=== PATIENT | female | born 1970 | race Caucasian/White ===

== ENCOUNTER 2017-06-20 15:05 | Emergency (ER) | payer OTHER ==
--- NOTE | 2017-06-20 15:33 | ED Physician Documentation ---
PD HPI LOWER EXT INJURY - Stated complaint Stated Complaint: R FOOT INJURY - Chief complaint Chief Complaint: Ext Problem - History obtained from History obtained from: Patient - History of Present Illness PD HPI LOW EXT INJURY LOCATION: Right, Foot Type of injury: Other (Came off a stool wrong- felt pop/cruch lateral R foot with persistent pain) Timing - onset: Other (1 week ago) Review of Systems Constitutional: reports: Reviewed and negative Throat: reports: Reviewed and negative Cardiac: reports: Reviewed and negative PD PAST MEDICAL HISTORY - Past Medical History Past Medical History: Yes Musculoskeletal: Osteoarthritis - Past Surgical History Past Surgical History: Yes Ortho: ACL reconstruction, Shoulder arthroplasty HEENT: Other - Present Medications Home Medications: Ambulatory Orders Medication Instructions Recorded Confirmed Ipratropium/Albuterol [Combivent 1 puffs PO 06/20/17 Respimat] Meloxicam [Mobic] 7.5 mg PO PRN PRN 06/20/17 06/20/17 - Allergies Allergies/Adverse Reactions: Allergies Allergy/AdvReac Type Severity Reaction Status Date / Time avocado Allergy Nausea Verified 06/20/17 15:15 cyclobenzaprine HCl * Allergy Unknown Verified 06/20/17 15:15 [From Flexeril] flu shot Allergy Anaphylaxis Uncoded 06/20/17 15:15 pain meds Allergy Unknown Uncoded 06/20/17 15:14 - Social History Does the pt smoke?: No Smoking Status: Never smoker PD ED PE NORMAL - Vitals Vital signs reviewed: Yes - General General: Alert and oriented X 3, No acute distress - Extremities Extremities: Other (Right foot looks grossly normal, great pedal pulses. She is focally tender over the fifth metatarsal without obvious deformity.) - Neuro Neuro: Alert and oriented X 3, Normal speech - Psych Psych: Normal mood, Normal affect Results - Vitals Vitals: Vital Signs - 24 hr 06/20/17 06/20/17 15:10 16:20 Temperature 37.3 C Heart Rate 93 84 Respiratory 18 16 Rate Blood Pressure 126/84 H 121/79 O2 Saturation 97 96 Oxygen O2 Source Room air - Rads (name of study) 3v R foot Radiology: EMP read contemporaneously (negative) Departure - Departure Disposition: 01 Home, Self Care Clinical Impression: Right foot sprain Qualifiers: Encounter type: initial encounter Qualified Code(s): S93.601A - Unspecified sprain of right foot, initial encounter Condition: Good Record reviewed to determine appropriate education?: Yes Instructions: ED Splint Care Aircast Splint Boot, ED Sprain Foot Comments: Recheck with your physician in 1 week if not improving. Your blood pressure was elevated today on check into the emergency department. This does not mean that you have hypertension, it is a common phenomenon to come to the emergency department and have elevated blood pressure. I recommend that she see her primary care physician within the week to have it rechecked when you are feeling better. Discharge Date/Time: 06/20/17 16:20
--- NOTE | 2017-06-20 16:01 | XRAY Preliminary Report ---
Exam: XR Foot 3 View RT IMPRESSION: Normal foot radiography. [facility] SITE ID: [id number]
[2017-06-20 16:22] VITALS: BP 121/79
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
== END 2017-06-20 16:20 | disposition home or self-care (01) ==
LOC: ED 15:05
DX: S93.601A Unspecified sprain of right foot, initial encounter (principal); X50.0XXA Overexertion from strenuous movement or load, initial encounter; M19.90 Unspecified osteoarthritis, unspecified site; R03.0 Elevated blood-pressure reading, without diagnosis of hypertension
CPT/HCPCS: 99282; 99283

== ENCOUNTER 2017-10-28 08:11 | Outpatient (CLI) | payer OTHER ==
--- NOTE | 2017-10-28 15:17 | Ultrasound Report ---
EXAM: LEFT BREAST ULTRASOUND: 10/28/2017 INDICATION: Pain, itching. TECHNIQUE: Ultrasound of the left upper outer quadrant was performed. FINDINGS: At the 2 o'clock position, 6 cm from the nipple, there is a simple 1.8 x 1.7 x 1.0 cm cyst. No sonographically suspicious findings are identified. IMPRESSION: BENIGN FINDINGS, WITH A SIMPLE CYST PRESENT. RECOMMENDATIONS: Routine annual screening unless otherwise clinically indicated. BIRADS CATEGORY 2-BENIGN FINDINGS. TD: 10/28/2017 13:59 MTDD
--- NOTE | 2017-10-28 15:20 | Mammography Report ---
EXAM: DIGITAL DIAGNOSTIC BILATERAL MAMMOGRAM: 10/28/2017 CLINICAL INDICATION: Bilateral pain, burning, itching. TECHNIQUE: Bilateral CC. MLO, laterally exaggerated CC, true lateral views. COMPARISON: Outside mammograms dated 09/17/2016, 07/05/2015, 05/25/2014, 2011. FINDINGS: The breasts demonstrate heterogeneously dense fibroglandular parenchyma bilaterally. There is an 1.5 cm developing density in the right 9 o' clock position posteriorly. A few punctate, typically benign calcifications are present. Please also refer to bilateral breast ultrasound of the same day. IMPRESSION: BENIGN FINDINGS, WITH BILATERAL CYSTS IDENTIFIED ON ULTRASOUND. RECOMMENDATIONS: Routine annual screening unless otherwise clinically indicated. BIRADS CATEGORY 2-BENIGN FINDINGS. STANDARD QUALIFYING STATEMENTS: 1. This examination was reviewed with the aid of Computer-Aided Detection (CAD). 2. A negative or benign imaging report should not delay biopsy if clinically suspicious findings are present. Consider surgical consultation if warranted. More than 5% of cancers are not identified by imaging. 3. Dense breasts may obscure an underlying neoplasm. TD: 10/28/2017 14:06 POLA
--- NOTE | 2017-10-28 15:33 | Ultrasound Report ---
EXAMINATION: RIGHT BREAST ULTRASOUND 10/28/2017 CLINICAL INDICATION: Abnormal mammogram, pain, itching. TECHNIQUE: Real-time scanning was performed with vaccine customer representative static images obtained. FINDINGS: Ultrasound of the right upper outer and lower outer quadrants was performed. At the 9 o'clock position, 10 cm from the nipple, there is a 1.7 x 1.1 x 0.8 cm simple cyst, accounting for the mammographic abnormality. No sonographically suspicious findings are identified. IMPRESSION: BENIGN FINDINGS. RECOMMENDATION: Routine annual screening unless otherwise clinically indicated. BIRADS Category 2 - benign findings. TD: 10/28/2017 14:23 POLA
== END 2017-10-28 08:12 | disposition home or self-care (01) ==
LOC: DI 08:11
PROVIDERS: ATTEND Physician Assistant
DX: N64.4 Mastodynia (principal); R21 Rash and other nonspecific skin eruption; L29.9 Pruritus, unspecified; R20.8 Other disturbances of skin sensation
CPT/HCPCS: 76642; 77066

== ENCOUNTER 2018-01-08 07:11 | Outpatient (CLI) | payer OTHER ==
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
== END 2018-01-08 07:12 | disposition home or self-care (01) ==
LOC: DI 07:11
PROVIDERS: ATTEND Family Medicine
DX: M50.222 Other cervical disc displacement at C5-C6 level (principal); M50.322 Other cervical disc degeneration at C5-C6 level
CPT/HCPCS: 72141

== ENCOUNTER 2019-01-28 10:44 | Emergency (ER) | payer OTHER, BC ==
[2019-01-28] MEDS ORDERED: diazePAM 5 MG TABLET PO STA (12:30)
[2019-01-28] MEDS ORDERED: HYDROcod/ACETAM 5/325 MG TABLET PO STA (12:30)
[2019-01-28] MEDS ORDERED: traMADol 50 MG TABLET PO STA (12:58)
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
[2019-01-28 14:29] VITALS: BP 121/82
== END 2019-01-28 14:34 | disposition home or self-care (01) ==
LOC: ED 10:44
DX: S16.1XXA Strain of muscle, fascia and tendon at neck level, initial encounter (principal); M25.511 Pain in right shoulder; M54.6 Pain in thoracic spine; V89.2XXA Person injured in unspecified motor-vehicle accident, traffic, initial encounter
CPT/HCPCS: 72072; 72125; 73030; 99283; A9270

== ENCOUNTER 2019-02-10 17:15 | Outpatient (CLI) | payer OTHER, BC ==
--- NOTE | 2019-02-11 13:18 | XRAY Report ---
Reason: RADICULOPATHY,LUMBOSACRAL REGION Procedure Date: 02/10/2019 Accession Number: [id number] / [id number] Procedure: XR - Lumbar Spine 2 View CPT Code: FULL RESULT: EXAM: LUMBOSACRAL SPINE RADIOGRAPHY EXAM DATE: 02/10/2019 05:26 PM. CLINICAL HISTORY: Radiculopathy, lumbosacral region. COMPARISONS: None. TECHNIQUE: 2 views. FINDINGS: Alignment: Normal. No spondylolisthesis or scoliosis. Bones: Five uqd-jzu-dlhqnbl lumbar vertebral bodies are present. No fractures or bone lesions. Disks: Normal. Disk heights are maintained. Facets: No degenerative changes. Sacroiliac Joints: Unremarkable. Soft Tissues: Normal. The visualized bowel gas pattern is normal. IMPRESSION: Normal lumbar spine radiography. [facility]
== END 2019-02-10 17:16 | disposition home or self-care (01) ==
LOC: DI 17:15
PROVIDERS: ATTEND Family Medicine
DX: M54.17 Radiculopathy, lumbosacral region (principal)
CPT/HCPCS: 72100

== ENCOUNTER 2019-03-04 10:57 | Outpatient (CLI) | payer OTHER, BC ==
--- NOTE | 2019-03-05 07:55 | CT Report ---
Reason: RADICULOPATHY, LUMBOSACRAL REGION Procedure Date: 03/04/2019 Accession Number: [id number] / [id number] Procedure: CT - LUMBAR SPINE WO CPT Code: FULL RESULT: EXAM: CT LUMBAR SPINE WITHOUT CONTRAST EXAM DATE: 03/04/2019 11:26 AM. CLINICAL HISTORY: RADICULOPATHY, LUMBOSACRAL REGION. COMPARISONS: Lumbar radiographs 02/10/2019. TECHNIQUE: Thin-section axial images were acquired of the lumbar spine from T12 to S1 without contrast. Post-processing: Coronal and sagittal reformats. Other: None. In accordance with CT protocol optimization, one or more of the following dose reduction techniques were utilized for this exam: automated exposure control, adjustment of mA and/or KV based on patient size, or use of iterative reconstructive technique. FINDINGS: Alignment: Normal alignment. No spondylolisthesis. Bones: Five plv-lki-hjvyzuq lumbar vertebral bodies are present. No acute fracture. No destructive bone lesion. At the T11 and T12 levels there are midline defects in the posterior elements which may reflect spina bifida occulta versus previous partial laminectomies. Disk Levels/Facets: T12-L1: Unremarkable. L1-L2: Unremarkable. L2-L3: Unremarkable. L3-L4: Mild facet arthropathy. No stenosis. L4-L5: Mild facet arthropathy. No stenosis. L5-S1: Mild disk height loss. No stenosis. Musculature: Normal. No fatty atrophy. Other: 1. Midline posterior element defects at the T11 and T12 levels which may reflect developmental spina bifida occulta versus previous partial laminectomies. 2. No acute fracture. No significant stenosis identified by CT. IMPRESSION: Normal lumbar spine CT. [facility]
== END 2019-03-04 10:58 | disposition home or self-care (01) ==
LOC: DI 10:57
PROVIDERS: ATTEND Family Medicine
DX: M47.9 Spondylosis, unspecified (principal); M48.8X6 Other specified spondylopathies, lumbar region
CPT/HCPCS: 72131

== ENCOUNTER 2019-05-22 08:30 | Outpatient (CLI) | payer OTHER, MEDICAID ==
--- NOTE | 2019-05-22 18:08 | MRI Report ---
Reason: RADICULOPATHY, LUMBOSACRAL REGION Procedure Date: 05/22/2019 Accession Number: [id number] / [id number] Procedure: MRI - Lumbar Spine W/O CPT Code: FULL RESULT: EXAM: MRI LUMBAR SPINE WITHOUT CONTRAST EXAM DATE: 05/22/2019 09:30 AM. CLINICAL HISTORY: RADICULOPATHY, LUMBOSACRAL REGION. COMPARISON: LUMBAR SPINE W/O 03/04/2019 11:17 AM. TECHNIQUE: Multiplanar, multisequence T1-weighted and fluid-sensitive sequences of the lumbar spine from T12 to S1 without contrast. Other: None. FINDINGS: Spinal Canal: The conus terminates at L1. The conus medullaris and cauda equina are unremarkable. Alignment: No scoliosis or spondylolisthesis. Bone Marrow: Five dki-bni-nftktex lumbar vertebral bodies are assumed. Posterior decompression procedure with laminectomy at T11 and T12, similar to previous. No fractures. Disk Levels/Facets: T12-L1: Dorsal decompression procedure. No mass. L1-L2: Normal disk. No stenosis. L2-L3: Unremarkable. L3-L4: Unremarkable. L4-L5: Normal disk, prominent facets, no stenosis. L5-S1: Annular tear. Normal disk. No central or foraminal stenosis. Musculature: Moderate fatty atrophy of the multifidus muscle is seen. Other: The partially visualized retroperitoneum is unremarkable. IMPRESSION: 1. Conus terminates at L1 which is normal. No scoliosis or listhesis. Previous posterior decompression procedure with laminectomy at T11 and T12. This is similar to the previous CT study. 2. No stenosis seen throughout. Comment: The following findings are so common in adults without low back pain that while we report their presence, they must be interpreted with caution and in the context of the clinical situation. (Reference Annak et al, Spine 2001) Prevalence of findings in patients without low back pain: Disk degeneration (any evidence): 92% Disk desiccation/T2 signal loss: 83% Disk height loss: 56% Disk bulge: 64% Disk protrusion: 32% Annular tear/high intensity zone: 38% [facility]
== END 2019-05-22 08:31 | disposition home or self-care (01) ==
LOC: DI 08:30
PROVIDERS: ATTEND Family Medicine
DX: M54.17 Radiculopathy, lumbosacral region (principal)
CPT/HCPCS: 72148

== ENCOUNTER 2019-08-04 14:43 | Outpatient (CLI) | payer BC, MEDICAID ==
[2019-08-04 15:06] LABS: BASOPHILS # (AUTO) 0.1 10^3/uL (0.0-0.1); BASOPHILS % (AUTO) 0.8 %; EOSINOPHILS # (AUTO) 0.2 10^3/uL (0.0-0.7); EOSINOPHILS % (AUTO) 2.2 %; HGB - HEMOGLOBIN 12.9 g/dL (12.0-16.0); LYMPHOCYTES # (AUTO) 1.7 10^3/uL (1.5-3.5); LYMPHOCYTES % (AUTO) 21.7 %; MEAN CORPUSCULAR HEMOGLOBIN 30.9 pg (27.0-31.0); MEAN CORPUSCULAR HGB CONC 32.7 g/dL (32.0-36.0); MEAN CORPUSCULAR VOLUME 94.3 fL (81.0-99.0); MEAN PLATELET VOLUME 9.6 fL (7.9-10.8); MONOCYTES # (AUTO) 0.8 10^3/uL (0.0-1.0); MONOCYTES % (AUTO) 10.1 %; NEUTROPHILS % (AUTO) 64.8 %; PLT - PLATELET COUNT 242 10^3/uL (130-450); RED BLOOD COUNT 4.18 10^6/uL (4.20-5.40); RED CELL DISTRIBUTION WIDTH 12.9 % (12.0-15.0); WHITE BLOOD COUNT 7.7 x10^3/uL (4.8-10.8)
[2019-08-04 15:26] LABS: ALBUMIN 4.3 g/dL (3.2-5.5); ALBUMIN/GLOBULIN RATIO 1.5 (1.0-2.2); BILIRUBIN,TOTAL 0.6 mg/dL (0.2-1.0); CALCIUM 9.9 mg/dL (8.5-10.3); CREATININE 1.1 mg/dL (0.4-1.0); TOTAL PROTEIN 7.1 g/dL (6.7-8.2)
[2019-08-04] MEDS ORDERED: IOVERSOL 320 50 ML VIAL ONE (16:10)
[2019-08-04] MEDS ORDERED: IOVERSOL 320 100 ML VIAL IVP ONE ×2 (16:10→16:56)
[2019-08-04] MEDS ORDERED: IOVERSOL 320 50 ML VIAL PO ONE (16:56)
--- NOTE | 2019-08-04 17:36 | CT Report ---
Reason: ABDOMINAL PAIN Procedure Date: 08/04/2019 Accession Number: [id number] / [id number] Procedure: CT - Abdomen/Pelvis W CPT Code: FULL RESULT: EXAM: CT ABDOMEN AND PELVIS EXAM DATE: 08/04/2019 04:57 PM. CLINICAL HISTORY: Cc Optiray 320 COMPARISONS: None. TECHNIQUE: Routine helical CT imaging was performed through the abdomen and pelvis. IV contrast: OPTI 320 100ML. Enteric contrast: Yes. Reconstructions: Coronal and sagittal. In accordance with CT protocol optimization, one or more of the following dose reduction techniques were utilized for this exam: automated exposure control, adjustment of mA and/or KV based on patient size, or use of iterative reconstructive technique. FINDINGS: Imaged chest: Unremarkable. Liver: There is a cyst within the left lobe of the liver. Gallbladder: Unremarkable. Biliary: Unremarkable. Pancreas: Unremarkable. Spleen: Unremarkable. Adrenal glands: Unremarkable. Kidneys: There are 2 cysts within the upper pole the right kidney. No hydronephrosis or nephrolithiasis. Urinary bladder: Unremarkable. Reproductive organs: The uterus is grossly unremarkable. Within the left adnexa, there is a hypoenhancing 8 x 5.4 x 5.2 cm mass with high density fluid in the cul-de-sac which may represent acute blood products. Bowel: Unremarkable. Stomach: Unremarkable. Appendix: The appendix is not reliably identified, however, there are no secondary signs of acute appendicitis. Miscellaneous: No extraluminal gas. Aorta: No significant aortic atherosclerosis. Normal in caliber. Lymph nodes: No pathologically enlarged lymph nodes identified. Bones: No acute fracture. No suspicious osseous lesions. Sidewalls: Unremarkable. IMPRESSION: 1. Within the left adnexa, there is a hypoenhancing 8 x 5.4 x 5.2 cm mass with high density fluid in the cul-de-sac which may represent acute blood products. Differential includes ovarian mass versus ovarian torsion. Recommend pelvic ultrasound for further evaluation. [facility] The call report notification system was initiated by Dr. Jose De Jesus Cardona at 05:25 PM on 08/04/2019. ADDENDUM: 08/04/19 17:37 The above call report findings were discussed with Geovanna Charels by Dr. Jose De Jesus Cardona at 05:37 PM on 08/04/2019.
[2019-08-04] MEDS ORDERED: BUPIVACAINE 0.5%-EPI 1:200000 PF 10 ML VIAL ONE (21:28)
[2019-08-05] MEDS ORDERED: PROMETHAZINE 25 MG/1 ML VIAL ONE (00:03)
[2019-08-05] MEDS ORDERED: fentaNYL 100 MCG/2 ML VIAL ONE (00:34)
== END 2019-08-04 14:44 | disposition home or self-care (01) ==
LOC: LAB 14:43 → DI 14:44
PROVIDERS: ATTEND Nurse Practitioner
DX: R10.9 Unspecified abdominal pain (principal); R19.04 Left lower quadrant abdominal swelling, mass and lump
CPT/HCPCS: 36415; 74177; 80053; 85025

== ENCOUNTER 2019-08-04 17:57 | Day surgery (SDC) | payer BC, MEDICAID ==
[~2019-08-04 17:57] MED LIST: HYDROmorphone 0.5 MG/0.5 ML SYRINGE IVP PRN; LACTATED RINGERS 1,000 ML IV ONE; LORazepam 2 MG/ML VIAL IVP PRN; ONDANSETRON 4 MG/2 ML VIAL IVP PRN; oxyCODONE 5 MG TABLET PO PRN
[2019-08-04 18:20] LABS: BILIRUBIN,URINE NEGATIVE (NEGATIVE); GLUCOSE, URINE (UA) NEGATIVE (NEGATIVE); KETONES,URINE (UA) NEGATIVE (NEGATIVE); LEUKOCYTE ESTERASE, URINE NEGATIVE (NEGATIVE); NITRITE,URINE NEGATIVE (NEGATIVE); OCCULT BLOOD,URINE LARGE (NEGATIVE); PH,URINE 5.5 PH (5.0-7.5); PROTEIN,URINE NEGATIVE (NEGATIVE); UROBILINOGEN,URINE 0.2 (NORMAL) E.U./dL (NORMAL)
[2019-08-04 18:23] LABS: CLARITY,URINE HAZY (CLEAR); HCG UR QUAL POSITIVE
[2019-08-04 18:28] LABS: BACTERIA,URINE Few /HPF (None Seen); SQUAMOUS EPITHELIAL CELL,UR MOD Squamous (<= Few)
[2019-08-04 18:41] LABS: BASOPHILS # (AUTO) 0.1 10^3/uL (0.0-0.1); BASOPHILS % (AUTO) 0.9 %; EOSINOPHILS # (AUTO) 0.2 10^3/uL (0.0-0.7); EOSINOPHILS % (AUTO) 2.6 %; HGB - HEMOGLOBIN 13.3 g/dL (12.0-16.0); LYMPHOCYTES # (AUTO) 2.4 10^3/uL (1.5-3.5); LYMPHOCYTES % (AUTO) 31.3 %; MEAN CORPUSCULAR HEMOGLOBIN 31.2 pg (27.0-31.0); MEAN CORPUSCULAR HGB CONC 33.3 g/dL (32.0-36.0); MEAN CORPUSCULAR VOLUME 93.7 fL (81.0-99.0); MEAN PLATELET VOLUME 9.8 fL (7.9-10.8); MONOCYTES # (AUTO) 0.6 10^3/uL (0.0-1.0); MONOCYTES % (AUTO) 8.1 %; NEUTROPHILS # (AUTO) 4.4 10^3/uL (1.5-6.6); PLT - PLATELET COUNT 246 10^3/uL (130-450); RED BLOOD COUNT 4.26 10^6/uL (4.20-5.40); RED CELL DISTRIBUTION WIDTH 12.9 % (12.0-15.0); WHITE BLOOD COUNT 7.8 x10^3/uL (4.8-10.8)
[2019-08-04 18:56] LABS: ALBUMIN 4.5 g/dL (3.2-5.5); ALBUMIN/GLOBULIN RATIO 1.6 (1.0-2.2); BILIRUBIN,TOTAL 0.5 mg/dL (0.2-1.0); CALCIUM 9.9 mg/dL (8.5-10.3); CREATININE 0.9 mg/dL (0.4-1.0); TOTAL PROTEIN 7.3 g/dL (6.7-8.2)
[2019-08-04] MEDS ORDERED: ONDANSETRON 4 MG/2 ML VIAL IVP STA (19:04)
[2019-08-04] MEDS ORDERED: HYDROmorphone 1 MG/ML CARPUJECT IVP STA (19:04)
--- NOTE | 2019-08-04 19:30 | ED Physician Documentation ---
PD HPI ABD PAIN - Stated complaint Stated Complaint: ABN CT SCAN - Chief complaint Chief Complaint: Abd Pain - History obtained from History obtained from: Patient - History of Present Illness Timing - onset: Other (49-year-old woman status post remote ablation and tubal ligation developed some left-sided abdominal swelling 2 days ago and then suddenly at 1 PM yesterday left-sided abdominal pain. She went to see her doctor today and a CT was done showing an 8 cm adnexal mass with free fluid and was sent here for further evaluation and treatment.) Review of Systems Ten Systems: 10 systems reviewed and negative Constitutional: reports: Reviewed and negative Nose: reports: Reviewed and negative Throat: reports: Reviewed and negative Cardiac: reports: Reviewed and negative Respiratory: reports: Reviewed and negative PD PAST MEDICAL HISTORY - Past Medical History Past Medical History: No Musculoskeletal: Osteoarthritis - Past Surgical History Past Surgical History: Yes Ortho: ACL reconstruction, Shoulder arthroplasty HEENT: Other - Present Medications Home Medications: Ambulatory Orders Medication Instructions Recorded Confirmed Ipratropium/Albuterol [Combivent 1 puffs PO Q6HR 06/20/17 01/28/19 Respimat] Meloxicam [Mobic] 7.5 mg PO PRN PRN 06/20/17 01/28/19 diazePAM [Valium] 5 mg PO TID PRN #15 tablet 01/28/19 - Allergies Allergies/Adverse Reactions: Allergies Allergy/AdvReac Type Severity Reaction Status Date / Time avocado Allergy Anaphylaxis Verified 08/04/19 18:04 cyclobenzaprine HCl * Allergy Anaphylaxis Verified 08/04/19 18:04 [From Flexeril] Influenza Virus Vaccines Allergy Anaphylaxis Verified 08/04/19 18:04 meperidine [From Demerol] Allergy Hives Verified 08/04/19 18:04 Opioids - Morphine Analogues AdvReac Nausea Verified 08/04/19 18:04 - Social History Does the pt smoke?: No Smoking Status: Never smoker Does the pt drink ETOH?: No Does the pt have substance abuse?: No - Family History Family history: reports: Non contributory PD ED PE NORMAL - Vitals Vital signs reviewed: Yes - General General: Alert and oriented X 3, No acute distress - HEENT HEENT: PERRL, EOMI - Neck Neck: Supple, no meningeal sign, No bony TTP - Cardiac Cardiac: RRR, No murmur - Respiratory Respiratory: No respiratory distress, Clear bilaterally - Abdomen Abdomen: Other (Mild left-sided abdominal tenderness) - Back Back: No CVA TTP, No spinal TTP - Derm Derm: Normal color, Warm and dry - Extremities Extremities: No edema, No calf tenderness / cord - Neuro Neuro: Alert and oriented X 3, Normal speech Results - Vitals Vitals: Vital Signs - 24 hr 08/04/19 17:59 Temperature 36.5 C Heart Rate 90 Respiratory 18 Rate Blood Pressure 131/88 H O2 Saturation 100 Oxygen O2 Source Room air - Labs Labs: Laboratory Tests 08/04/19 08/04/19 08/04/19 18:07 18:28 18:28 WBC 7.8 RBC 4.26 Hgb 13.3 Hct 39.9 MCV 93.7 MCH 31.2 H MCHC 33.3 RDW 12.9 Plt Count 246 MPV 9.8 Neut # (Auto) 4.4 Lymph # (Auto) 2.4 Cuming # (Auto) 0.6 Eos # (Auto) 0.2 Baso # (Auto) 0.1 Absolute Nucleated RBC 0.00 Nucleated RBC % 0.0 Sodium 136 Potassium 3.9 Chloride 103 Carbon Dioxide 25 Anion Gap 8.0 BUN 19 Creatinine 0.9 Estimated GFR (MDRD) 67 L Glucose 100 Calcium 9.9 Total Bilirubin 0.5 AST 21 ALT 29 Alkaline Phosphatase 34 L Total Protein 7.3 Albumin 4.5 Globulin 2.8 Albumin/Globulin Ratio 1.6 Lipase 32 HCG, Quant Urine Color YELLOW Urine Clarity HAZY Urine pH 5.5 Ur Specific [place] <=1.005 Urine Protein NEGATIVE Urine Glucose (UA) NEGATIVE Urine Ketones NEGATIVE Urine Occult Blood LARGE H Urine Nitrite NEGATIVE Urine Bilirubin NEGATIVE Urine Urobilinogen 0.2 (NORMAL) Ur Leukocyte Esterase NEGATIVE Urine RBC 6-10 H Urine WBC 0-3 Ur Squamous Epith Cells MOD Squamous H Urine Bacteria Few Ur Microscopic Review INDICATED Urine Culture Comments NOT INDICATED Urine HCG, Qual POSITIVE 08/04/19 19:38 WBC RBC Hgb Hct MCV MCH MCHC RDW Plt Count MPV Neut # (Auto) Lymph # (Auto) [place] # (Auto) Eos # (Auto) Baso # (Auto) Absolute Nucleated RBC Nucleated RBC % Sodium Potassium Chloride Carbon Dioxide Anion Gap BUN Creatinine Estimated GFR (MDRD) Glucose Calcium Total Bilirubin AST ALT Alkaline Phosphatase Total Protein Albumin Globulin Albumin/Globulin Ratio Lipase HCG, Quant 771.38 Urine Color Urine Clarity Urine pH Ur Specific [place] Urine Protein Urine Glucose (UA) Urine Ketones Urine Occult Blood Urine Nitrite Urine Bilirubin Urine Urobilinogen Ur Leukocyte Esterase Urine RBC Urine WBC Ur Squamous Epith Cells Urine Bacteria Ur Microscopic Review Urine Culture Comments Urine HCG, Qual - Rads (name of study) Pelvic sono Radiology: EMP read contemporaneously (1. Arterial and venous blood flow identified in both ovaries without findings of acute torsion. 2. Left ovary is enlarged and contains a 4.2 cm complex cyst or cystic mass. Recommend follow-up ultrasound to reevaluate. 3. Free fluid in the posterior cul-de-sac of the pelvis and adnexa.) PD MEDICAL DECISION MAKING - ED course ED course: On arrival here test was done and positive, this is concerning for an ectopic and after my evaluation the on-call OB was paged. Spoke with Dr. Salcido, he had a patient that was pushing so deferred to Dr. Correa who expeditiously came in to evaluate the patient and take her to the OR for a ruptured ectopic . Departure - Departure Disposition: ED Transfer to [facility] Clinical Impression: Ruptured left tubal ectopic causing hemoperitoneum Condition: Serious
--- NOTE | 2019-08-04 19:45 | Ultrasound Report ---
Reason: pelvic mass vs torsion on CT Procedure Date: 08/04/2019 Accession Number: [id number] / [id number] Procedure: US - Pelvic w/Transvag+Doppler Ltd CPT Code: FULL RESULT: EXAM: PELVIC ULTRASOUND WITH DOPPLERS CLINICAL HISTORY: Pelvic mass vs torsion on CT. COMPARISON: ABDOMEN/PELVIS W/ 08/04/2019 4:52 PM TECHNIQUE: Realtime transabdominal imaging performed to identify the uterus and adnexa and as an overview of other pelvic structures, with static image documentation. Color flow imaging and Doppler spectral analysis was performed to evaluate blood flow to the ovaries given pelvic pain and clinical concern for ovarian torsion. FINDINGS: Uterus: 8 x 3.3 x 4.5 cm, volume 62 cc. Anteverted position. Normal overall size and echotexture. Masses: None. Endometrium: 9 mm. Normal. Cervix: Unremarkable. Right Ovary: 3.2 x 2.7 x 2.1 cm, volume 10 cc. Normal in size. Arterial and venous blood flow are present. PSV 7.7 cm/sec. RI 0.7. Adnexa peristalsing loops of bowel seen. Small free fluid in adnexa.. Left Ovary: 5.5 x 3.9 x 5 cm, volume 55 cc. Left ovary is enlarged. There is a hypoechoic complex cyst or mass measuring 4.2 x 3.3 x 4.1 cm. Arterial and venous blood flow are present. PSV 10.2 cm/sec. RI 0.6. Adnexa free fluid visualized.. Free Fluid: Free fluid visualized in the posterior cul-de-sac, limited by peristalsing bowel. Other: None. IMPRESSION: 1. Arterial and venous blood flow identified in both ovaries without findings of acute torsion. 2. Left ovary is enlarged and contains a 4.2 cm complex cyst or cystic mass. Recommend follow-up ultrasound to reevaluate. 3. Free fluid in the posterior cul-de-sac of the pelvis and adnexa. RADIA
[2019-08-04] MEDS ORDERED: diphenhydrAMINE INJ 50 MG/ML VIAL IVP ONE (20:37)
[2019-08-04] MEDS ORDERED: NEOSTIGMINE 1 MG/1 ML 10 ML MDV IVP ONE (20:37)
[2019-08-04] MEDS ORDERED: MIDAZOLAM 2 MG/2 ML VIAL IVP ONE (20:37)
[2019-08-04] MEDS ORDERED: ACETAMINOPHEN 1,000 MG/100 ML 100 ML IV ONE (20:37)
[2019-08-04] MEDS ORDERED: LIDOCAINE-MPF 2% 5 ML VIAL IM ONE (20:37)
[2019-08-04] MEDS ORDERED: PROPOFOL 200 MG/20 ML VIAL IVP ONE (20:37)
[2019-08-04] MEDS ORDERED: fentaNYL 100 MCG/2 ML VIAL IVP ONE (20:37)
[2019-08-04] MEDS ORDERED: KETOROLAC 30 MG/ML VIAL IVP ONE (20:37)
[2019-08-04] MEDS ORDERED: DEXAMETHASONE 4 MG/ML VIAL IVP ONE (20:37)
[2019-08-04] MEDS ORDERED: GLYCOPYRROLATE 1 MG/5 ML VIAL IVP ONE (20:37)
[2019-08-04] MEDS ORDERED: ROCURONIUM 50 MG/5 ML VIAL IVP ONE (20:37)
[2019-08-04] MEDS ORDERED: METOCLOPRAMIDE 10 MG/2 ML VIAL IVP ONE (20:37)
--- NOTE | 2019-08-04 21:10 | ANESTHESIA ---
Pre-Anesthesia VS, & Labs - Diagnosis ectopic - Procedure laparoscopy, treatment of ectopic Vital Signs: Temp Pulse Resp BP Pulse Ox 36.5 C 90 16 128/85 H 94 08/04/19 17:59 08/04/19 20:04 08/04/19 20:04 08/04/19 20:04 08/04/19 20:04 Height 5 ft 1 in Weight (kg) 80.739 kg Body Mass Index 33.6 - NPO Other (1130 lunch, CT prep 16;45) - Is Patient ?: Yes - Lab Results Current Lab Results: Laboratory Tests 08/04/19 19:38: Blood Type A POSITIVE, Antibody Screen NEGATIVE, Crossmatch IS Only See Detail 08/04/19 19:38: HCG, Quant 771.38 08/04/19 18:28: Blood Type Recheck A POSITIVE 08/04/19 18:28: Sodium 136, Potassium 3.9, Chloride 103, Carbon Dioxide 25, Anion Gap 8.0, BUN 19, Creatinine 0.9, Estimated GFR (MDRD) 67 L, Glucose 100, Calcium 9.9, Total Bilirubin 0.5, AST 21, ALT 29, Alkaline Phosphatase 34 L, Total Protein 7.3, Albumin 4.5, Globulin 2.8, Albumin/Globulin Ratio 1.6, Lipase 32 08/04/19 18:28: WBC 7.8, RBC 4.26, Hgb 13.3, Hct 39.9, MCV 93.7, MCH 31.2 H, MCHC 33.3, RDW 12.9, Plt Count 246, MPV 9.8, Neut # (Auto) 4.4, Lymph # (Auto) 2.4, [place] # (Auto) 0.6, Eos # (Auto) 0.2, Baso # (Auto) 0.1, Absolute Nucleated RBC 0.00, Nucleated RBC % 0.0 Fish Bones: 08/04/19 18:28 08/04/19 18:28 Home Medications and Allergies Ipratropium/Albuterol [Combivent Respimat] 1 puffs PO Q6HR 06/20/17 Meloxicam [Mobic] 7.5 mg PO PRN PRN 06/20/17 Allergies/Adverse Reactions: Allergies Allergy/AdvReac Type Severity Reaction Status Date / Time avocado Allergy Anaphylaxis Verified 08/04/19 18:04 cyclobenzaprine HCl * Allergy Anaphylaxis Verified 08/04/19 18:04 [From Flexeril] Influenza Virus Vaccines Allergy Anaphylaxis Verified 08/04/19 18:04 meperidine [From Demerol] Allergy Hives Verified 08/04/19 18:04 Opioids - Morphine Analogues AdvReac Nausea Verified 08/04/19 18:04 Anes History & Medical History - Anesthetic History Anesthesia Complications: reports: Post-Operative Nausea/Vomiting - Medical History Cardiovascular: reports: None, Murmur Pulmonary: reports: Asthma Gastrointestinal: reports: GERD Musculoskeletal: reports: Osteoarthritis Smoking Status: Never smoker - Surgical History Eyes Ears Nose Throat (EENT): Other Urologic: Ureterolithotomy (stones) Orthopedic: ACL reconstruction, Shoulder arthroplasty Exam General: Alert Dental: WNL Mouth Opening: Greater than 4 Fingerbreadths Mallampati classification: I Thyromental Distance: greater than 6 cm Respiratory: Lungs clear Cardiovascular: Regular rate Plan Anesthesia Type: General Consent for Procedure(s) Verified and Reviewed: Yes Code Status: Attempt Resuscitation ASA classification: 2-Mild systemic disease Is this case an emergency?: Yes
[2019-08-04] MEDS ORDERED: ceFAZolin 2 GM in SODIUM CHLORIDE 0.9% 100ML 100 ML IV STA (21:24)
[2019-08-04] MEDS ORDERED: ceFAZolin 1 GM VIAL ONE (21:35)
[2019-08-04] MEDS ORDERED: ONDANSETRON 4 MG/2 ML VIAL IVP PRN (23:36)
[2019-08-04] MEDS ORDERED: oxyCODONE 5 MG TABLET PO PRN (23:36)
[2019-08-04] MEDS ORDERED: LORazepam 2 MG/ML VIAL IVP PRN (23:36)
[2019-08-04] MEDS ORDERED: HYDROmorphone 0.5 MG/0.5 ML SYRINGE IVP PRN (23:36)
[2019-08-04] MEDS ORDERED: LACTATED RINGERS 1,000 ML IV ONE (23:38)
--- NOTE | 2019-08-04 23:44 | OPERATIVE REPORT ---
Operative Report - General Procedure Date: 08/04/19 Planned Procedure: Laproscopic excision of left ectopic with BS. Pre-Op Diagnosis: ruptured left ectopic Procedure Performed: Same Post Op Diagnosis: left cornual ectopic - Procedure Note Primary Surgeon: Anthony Correa MD Anesthesia Provider: Vee Viveros CRNA Anesthesia Technique: General ET tube Pathology: bilateral tubes, left cornual IV Fluids (mL): 1,000 Estimated Blood Loss (mL): 75 Urine Output (mL): 100 Indications: left tubal Findings: left cornual 500 ml blood in the abdomen - Other Other Information/Narrative: #[id number]
[2019-08-04] MEDS ORDERED: ACETAMINOPHEN 500 MG TABLET PO SCH (23:45)
--- NOTE | 2019-08-04 23:46 | PREOP HISTORY & PHYSICAL ---
DATE OF SERVICE: 08/04/2019 Physician: Anthony Correa MD IDENTIFICATION: The patient is a 49-year-old G4, P2, AB1 female, with last menstrual period was roug hly 9 days ago. HISTORY OF PRESENT ILLNESS: The patient was told to present because of an abnormal CAT scan. She no arleth an onset of left lower quadrant pain yesterday at roughly 1300 hours. She states it was knife-li ke. It spread to the lower abdomen over time. She states her pain is getting progressively worse. She has a history of having had her tubes tied in the past. She denies any history of any STIs. She has not been using any contraception and is currently sexually active. PAST MEDICAL HISTORY 1. Positive for asthma. 2. Back pain. PAST SURGICAL HISTORY 1. The patient had multiple sutures of the head at 14 years of age. 2. She has had PRK. 3. Left knee surgery. 4. Left ACL repair. 5. Left shoulder surgery. 6. She has also had discectomies and cervical surgery over C4, C5 and C6 in March 2018. 7. She had a tubal ligation done in 1994. 8. She has also had an endometrial ablation. CURRENT MEDICATIONS 1. Combivent p.r.n. 2. She also takes Colace. 3. Metamucil. 4. She takes Flonase for allergies. 5. She also is taking Vitamin D. 6. Multivitamin. 7. As well as CBD for back pain. ALLERGIES 1. FLEXERIL. 2. FLU SHOT. 3. AVOCADO. HABITS: The patient has three drinks per week. Denies use of tobacco, street or addictive drugs. SOCIAL HISTORY: The patient is in stable relationship for the last three years. She works as a [employer]. FAMILY HISTORY: Positive for father and grandfather with heart disease. Paternal grandmother with d iabetes. Maternal grandmother with diabetes, as well as a maternal grandfather with lung cancer, who smoked. Father with lung cancer, who also smoked, and a mother with thyroid disease. PHYSICAL EXAMINATION GENERAL: Well-developed, well-nourished, white female in mild distress. VITAL SIGNS: Temperature is 36.5, pulse is 90, blood pressure 131/88, respirations 18, 100% sat on r oom air. HEENT: Pupils are equal, round. Extraocular muscles are intact. Mouth is clear. NECK: Thyroid is not palpably enlarged. HEART: Regular rate and rhythm without murmurs. LUNGS: Lung galvan are clear without rales or wheezes. ABDOMEN: Tender throughout, particularly most tender in the left lower quadrant. IMAGING: CT shows evidence of a 5 x 5 x 7 cm left adnexal mass. LABORATORY DATA: She has a quantitative hCG of 771. Her CBC shows a hemoglobin of 13.3, hematocrit 33.3. Electrolytes are within normal limits. Platelets are also normal. IMPRESSION: A 45-year-old 4, para 2, AB 1 female with a left ectopic . PLAN: We will perform laparoscopic removal of the left ectopic and also remove the right t ube at the same time. Risks and benefits have been explained to the patient including those, but not limited to bleeding, infection, injury to pelvic organs, which include the uterus, tubes, ovaries, b owel, bladder and ureters. She is aware of the potential for DVT with PE, as well as postoperative a dhesions, which could cause pain, bowel obstruction. TD: 08/04/2019 20:56
[2019-08-05] MEDS ORDERED: BUPIVACAINE 0.25%-EPI 1:200000 PF 30 ML VIAL SUBQ ONE (00:04)
[2019-08-05] MEDS ORDERED: fentaNYL 100 MCG/2 ML VIAL IVP ONE (00:34)
[2019-08-05] MEDS: ACETAMINOPHEN 500 MG TABLET PO SCH ×2 (01:00→06:17)
--- NOTE | 2019-08-05 02:16 | OPERATIVE REPORT ---
DATE OF SERVICE: 08/04/2019 Physician: Anthony Correa MD PREOPERATIVE DIAGNOSIS: Left ectopic with a 5 x 7 left adnexal mass. POSTOPERATIVE DIAGNOSIS: Left cornual with hemoperitoneum. PROCEDURE PERFORMED: Laparoscopic excision of bilateral fallopian tubes as well as left cornual preg elder and oversewing of the left cornu. SURGEON: Anthony Correa MD ANESTHESIA: Vee Bonilla CRNA. ESTIMATED BLOOD LOSS: 75 mL, 1000 mL of IV fluids. URINE OUTPUT: 100 mL of urine, 500 mL of hemoperitoneum. FINDINGS: Upon entering the abdominal cavity, there was evidence of blood throughout the entire abdo tico cavity. There was a large clot attached to the left cornu. The ectopic appeared to be attached to the left cornu. DESCRIPTION OF PROCEDURE: Following adequate endotracheal anesthesia, patient was placed in the dors al lithotomy position in [facility]. She was then prepped and draped in the usual fashion. At t his point, a timeout was performed, at which time concerns were addressed. A speculum was placed in the vagina. The cervix was visualized, grasped with a single-tooth tenaculum and then dilated to 8 m m. A HUMI catheter was then inserted and inflated. The uterus had previously sounded to 8 cm. At t his point, the devulcanizer operator's gloves were changed and following local anesthesia with 0.25% Marcaine with epinephrine, a stab wound was made in the subumbilical area. A 5 mm trocar and sheath under direct visualization was passed without difficulty. There was evidence of hemoperitoneum throughout the ent gonzalo abdominal cavity. Two additional ports were placed, both in the left and right sides following l ocal anesthesia with 0.25% Marcaine. These were both placed under direct visualization. At this poi nt, the pelvis was inspected. The patient was placed in Trendelenburg and the left cornu was noted to have an ectopic . B ecause of the clot adhered to the left adnexa, we decided to enlarge the left port to 10 mm and then a 10 mm suction sales representative facility services aspirator was placed through this port. The pelvis was then irrigated adam n of any clot and suctioned as well. The right fallopian tube was grasped at its fimbriated end and then, utilizing the LigaSure, the mesosalpinx was cauterized and transected. This was carried all th e way to the mid portion where a previous tubal ligation had been performed. This was then removed t hrough the port. The left cornua was then cauterized. At this point, the left fallopian tube was gr asped on the fimbriated end and the mesosalpinx was likewise cauterized and transected all the way to the area where it had previously been ligated. With irrigation then, the left cornu was carefully i nspected and there appeared to be an ectopic residing in the uterine wall. This was then t eased free utilizing the LigaSure. There was evidence of what appeared to be good hemostasis; but be cause of its location and concerns about recurrent bleeding, this was oversewn with two 0 V-Loc sutur e. This showed good hemostasis. At this point, the entire pelvis was irrigated. There was no evidence of any further bleeding. The right lower quadrant trocars were removed and then a Aly-Zayra was placed and then this was poornima sed utilizing a suture of 0 Vicryl. This showed evidence of good closure. The left lower quadrant p ort was then removed under direct visualization. Once again, there was no evidence of any bleeding. The subumbilical port was removed. The skin incisions were then all closed with Monocryl subcuticul ar and then Dermabond was placed. The instruments were then removed from the vagina. The patient to lerated the procedure well and was taken to recovery in stable condition. Sponge and needle counts w ere correct. TD: 08/04/2019 23:53
[2019-08-05] MEDS ORDERED: MELOXICAM 7.5 MG TABLET PO SCH ×2 (09:00)
[2019-08-05] MEDS ORDERED: DOCUSATE SODIUM 100 MG CAPSULE PO SCH ×2 (09:00)
[2019-08-05 09:29] VITALS: BP 103/54
[2019-08-05] MEDS ORDERED: POLYETHYLENE GLYCOL 3350 17 GM PACKET PO PRN (09:41)
[2019-08-05] MEDS ORDERED: traMADol 50 MG TABLET PO PRN (09:46)
== END 2019-08-05 11:09 | disposition home or self-care (01) ==
LOC: ED 17:57 → SDS 20:36 → MS3 08-05 00:41 → SDS 08-05 11:09
PROVIDERS: ATTEND Obstetrics & Gynecology
PROC: 0UB74ZZ Excision of Bilateral Fallopian Tubes, Percutaneous Endoscopic Approach (ICD-10-PCS; 2019-08-04)
PROC: 10T24ZZ Resection of Products of Conception, Ectopic, Percutaneous Endoscopic Approach (ICD-10-PCS; principal; 2019-08-04 21:54)
DX: O00.80 Other ectopic pregnancy without intrauterine pregnancy (principal); O08.1 Delayed or excessive hemorrhage following ectopic and molar pregnancy; J45.909 Unspecified asthma, uncomplicated; K21.9 Gastro-esophageal reflux disease without esophagitis; Z79.51 Long term (current) use of inhaled steroids; R10.9 Unspecified abdominal pain; R19.04 Left lower quadrant abdominal swelling, mass and lump
CPT/HCPCS: 36415; 59151; 74177; 76830; 76856; 80053; 81001; 81025; 83690; 84702; 85025; 86850; 86900; 86901; 86920; 93976; 96374; 99283; 99285; A9270; J0131; J1170; J1200; J2765; J7120; Q9967; 81003; 87086

== ENCOUNTER 2019-08-09 15:39 | Emergency (ER) | payer BC, MEDICAID ==
[2019-08-09] MEDS ORDERED: SODIUM CHLORIDE 0.9% 1,000 ML IV ONE (15:59)
[2019-08-09] MEDS ORDERED: ONDANSETRON 4 MG/2 ML VIAL IVP STA (15:59)
--- NOTE | 2019-08-09 16:03 | ED Physician Documentation ---
History of Present Illness - Stated complaint Stated Complaint: N/V DIZZY - Chief complaint Chief Complaint: Abd Pain - History obtained from History obtained from: Patient - History of Present Illness Timing: How many days ago (3) Pain level max: 5 Pain level now: 4 - Additonal information Additional information: 49-year-old female is 5 days status post a bilateral salpingo-oophorectomy and left ectopic removal. She states that she has had right-sided abdominal pain for the past 3 to 4 days after a coughing fit. She states she has had continued nausea. Was on scopolamine, but is no longer on this. Is not taking anything for nausea. No fevers. Nothing makes it better or worse. Review of Systems Ten Systems: 10 systems reviewed and negative Constitutional: denies: Fever, Chills Cardiac: denies: Chest pain / pressure Respiratory: denies: Cough GI: reports: Nausea. 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 HEENT: Other - Present Medications Home Medications: Ambulatory Orders Medication Instructions Recorded Confirmed Ipratropium/Albuterol [Combivent 1 puffs PO Q6HR 06/20/17 01/28/19 Respimat] Meloxicam [Mobic] 7.5 mg PO PRN PRN 06/20/17 01/28/19 diazePAM [Valium] 5 mg PO TID PRN #15 tablet 01/28/19 - Allergies Allergies/Adverse Reactions: Allergies Allergy/AdvReac Type Severity Reaction Status Date / Time avocado Allergy Anaphylaxis Verified 08/04/19 18:04 cyclobenzaprine HCl * Allergy Anaphylaxis Verified 08/04/19 18:04 [From Flexeril] Influenza Virus Vaccines Allergy Anaphylaxis Verified 08/04/19 18:04 meperidine [From Demerol] Allergy Hives Verified 08/04/19 18:04 Opioids - Morphine Analogues AdvReac Nausea Verified 08/04/19 18:04 - Social History Does the pt smoke?: No Smoking Status: Never smoker Does the pt drink ETOH?: No Does the pt have substance abuse?: No PD ED PE NORMAL - General General: Alert and oriented X 3, No acute distress - HEENT HEENT: PERRL, Moist mucous membranes - Neck Neck: Supple, no meningeal sign - Cardiac Cardiac: RRR - Respiratory Respiratory: No respiratory distress, Clear bilaterally - Abdomen Abdomen: Soft, Other (Incisions are clean dry and intact without signs of infection. Mild tenderness to palpation right lower quadrant. No peritoneal signs) - Back Back: No spinal TTP - Derm Derm: Warm and dry - Extremities Extremities: No edema, No calf tenderness / cord - Neuro Neuro: Alert and oriented X 3 - Psych Psych: Normal mood, Normal affect Results - Vitals Vitals: Vital Signs - 24 hr 08/09/19 08/09/19 08/09/19 15:44 16:51 18:09 Temperature 36.4 C L Heart Rate 69 69 71 Respiratory 18 16 14 Rate Blood Pressure 137/81 H 117/76 120/79 O2 Saturation 97 98 95 08/09/19 19:55 Temperature 36.6 C Heart Rate 83 Respiratory 16 Rate Blood Pressure 118/81 H O2 Saturation 96 Oxygen O2 Source Room air - Labs Labs: Laboratory Tests 08/09/19 08/09/19 08/09/19 16:00 16:15 16:25 WBC 7.2 RBC 4.25 Hgb 12.8 Hct 40.3 MCV 94.8 MCH 30.1 MCHC 31.8 L RDW 12.8 Plt Count 273 MPV 9.2 Neut # (Auto) 4.7 Lymph # (Auto) 1.7 Teller # (Auto) 0.5 Eos # (Auto) 0.2 Baso # (Auto) 0.1 Absolute Nucleated RBC 0.00 Nucleated RBC % 0.0 Sodium 138 Potassium 4.0 Chloride 106 Carbon Dioxide 24 Anion Gap 8.0 BUN 21 H Creatinine 0.7 Estimated GFR (MDRD) 90 Glucose 113 H Calcium 9.6 Total Bilirubin 0.4 AST 33 ALT 42 Alkaline Phosphatase 32 L Total Protein 6.7 Albumin 4.2 Globulin 2.5 Albumin/Globulin Ratio 1.7 Lipase 25 Urine Color YELLOW Urine Clarity CLEAR Urine pH 6.0 Ur Specific [place] 1.025 Urine Protein NEGATIVE Urine Glucose (UA) NEGATIVE Urine Ketones NEGATIVE Urine Occult Blood NEGATIVE Urine Nitrite NEGATIVE Urine Bilirubin NEGATIVE Urine Urobilinogen 0.2 (NORMAL) Ur Leukocyte Esterase NEGATIVE Ur Microscopic Review NOT INDICATED Urine Culture Comments NOT INDICATED - Rads (name of study) CT abd/pelvis Radiology: Prelim report reviewed, EMP read contemporaneously, See rad report (No hematoma or abnormal fluid collection within the abdomen or pelvis. 2. Resolution of pelvic free fluid and adnexal fullness. 3. No new localizing inflammatory process. ) PD MEDICAL DECISION MAKING - ED course Complexity details: reviewed results, re-evaluated patient, considered differential, d/w patient ED course: Patient is a 49-year-old female who presents to the emergency department with abdominal discomfort after surgery 5 days ago. She also has nausea. Nausea resolved with Zofran. Tolerating p.o. without difficulty. States that she feels constipated and was given magnesium citrate. CT scan does not show any acute abnormalities. We will have her follow-up with her doctor for further care. She requests a scopolamine patch. This was placed. No signs of infection. Patient counseled regarding signs and symptoms for which I believe and urgent re-evaluation would be necessary. Patient with good understanding of and agreement to plan and is comfortable going home at this time This document was made in part using voice recognition software. While efforts are made to proofread this document, sound alike and grammatical errors may occur. Departure - Departure Disposition: 01 Home, Self Care Clinical Impression: Nausea Condition: Good Instructions: ED Nausea Vomiting Follow-Up: Geovanna Charles ARNP, [facility] [Primary Care Provider] - Anthony Correa MD [Provider Admit Priv/Credential] - Within 3 Days Comments: Follow-up with Dr. Correa for further care. Return if you worsen. Your labs are normal today. Drink plenty of fluids and rest. Return especially for fevers, worsening pain or vomiting. Remove the scopolamine patch in 3 days. Discharge Date/Time: 08/09/19 19:59
[2019-08-09 16:11] LABS: BASOPHILS # (AUTO) 0.1 10^3/uL (0.0-0.1); BASOPHILS % (AUTO) 0.7 %; EOSINOPHILS # (AUTO) 0.2 10^3/uL (0.0-0.7); EOSINOPHILS % (AUTO) 3.2 %; HGB - HEMOGLOBIN 12.8 g/dL (12.0-16.0); LYMPHOCYTES # (AUTO) 1.7 10^3/uL (1.5-3.5); LYMPHOCYTES % (AUTO) 22.9 %; MEAN CORPUSCULAR HEMOGLOBIN 30.1 pg (27.0-31.0); MEAN CORPUSCULAR HGB CONC 31.8 g/dL (32.0-36.0); MEAN CORPUSCULAR VOLUME 94.8 fL (81.0-99.0); MEAN PLATELET VOLUME 9.2 fL (7.9-10.8); MONOCYTES # (AUTO) 0.5 10^3/uL (0.0-1.0); MONOCYTES % (AUTO) 7.5 %; NEUTROPHILS # (AUTO) 4.7 10^3/uL (1.5-6.6); NEUTROPHILS % (AUTO) 65.4 %; PLT - PLATELET COUNT 273 10^3/uL (130-450); RED BLOOD COUNT 4.25 10^6/uL (4.20-5.40); RED CELL DISTRIBUTION WIDTH 12.8 % (12.0-15.0); WHITE BLOOD COUNT 7.2 x10^3/uL (4.8-10.8)
[2019-08-09] MEDS ORDERED: MAGNESIUM CITRATE 296 ML BOTTLE PO STA (16:15)
[2019-08-09 16:38] LABS: BILIRUBIN,URINE NEGATIVE (NEGATIVE); GLUCOSE, URINE (UA) NEGATIVE (NEGATIVE); KETONES,URINE (UA) NEGATIVE (NEGATIVE); LEUKOCYTE ESTERASE, URINE NEGATIVE (NEGATIVE); NITRITE,URINE NEGATIVE (NEGATIVE); OCCULT BLOOD,URINE NEGATIVE (NEGATIVE); PROTEIN,URINE NEGATIVE (NEGATIVE); UROBILINOGEN,URINE 0.2 (NORMAL) E.U./dL (NORMAL)
[2019-08-09 16:39] LABS: CLARITY,URINE CLEAR (CLEAR)
[2019-08-09 16:40] LABS: ALBUMIN 4.2 g/dL (3.2-5.5); ALBUMIN/GLOBULIN RATIO 1.7 (1.0-2.2); BILIRUBIN,TOTAL 0.4 mg/dL (0.2-1.0); CALCIUM 9.6 mg/dL (8.5-10.3); CREATININE 0.7 mg/dL (0.4-1.0); TOTAL PROTEIN 6.7 g/dL (6.7-8.2)
[2019-08-09] MEDS ORDERED: SCOPOLAMINE PATCH TOP STA (17:41)
[2019-08-09] MEDS ORDERED: IOVERSOL 320 100 ML VIAL IVP ONE ×2 (18:18→18:36)
--- NOTE | 2019-08-09 19:19 | CT Report ---
Reason: RLQ abd pain s/p BSO, ectopic 5 days ago Procedure Date: 08/09/2019 Accession Number: [id number] / [id number] Procedure: CT - Abdomen/Pelvis W CPT Code: FULL RESULT: EXAM: CT ABDOMEN AND PELVIS EXAM DATE: 08/09/2019 06:33 PM. CLINICAL HISTORY: RLQ abd pain s/p BSO, ectopic 5 days ago. Recent abdominal surgery. COMPARISONS: ABDOMEN/PELVIS W/ 08/04/2019 4:52 PM. TECHNIQUE: Routine helical CT imaging was performed through the abdomen and pelvis. IV contrast: OPTI 320 90ML. Enteric contrast: No. Reconstructions: Coronal and sagittal. In accordance with CT protocol optimization, one or more of the following dose reduction techniques were utilized for this exam: automated exposure control, adjustment of mA and/or KV based on patient size, or use of iterative reconstructive technique. FINDINGS: Lung Bases: Unremarkable. Liver: There is a 9 mm hypodense lesion in segment 4 of the liver which is unchanged. Liver size is normal. Gallbladder/Bile Ducts: Unremarkable. Spleen: Normal. Pancreas: Normal. Adrenal Glands: Normal. Kidneys: There are cysts in the upper pole of the right kidney. There is no solid renal mass or hydronephrosis. Peritoneal Cavity/Bowel: There is fluid within the stomach and small bowel. There is no transition zone. The cecum is located in the anterior right mid abdomen. There is oral contrast within a normal-appearing appendix. There is oral contrast in the left colon. There is no free air. No free fluid or abscess. No hematoma. Pelvic Organs: Uterus and ovaries appear normal in size for age. Vasculature: No aneurysms or other significant abnormality. Bones: No significant abnormality. Other: None. IMPRESSION: 1. No hematoma or abnormal fluid collection within the abdomen or pelvis. 2. Resolution of pelvic free fluid and adnexal fullness. 3. No new localizing inflammatory process. RADIA
[2019-08-09 19:56] VITALS: BP 118/81
== END 2019-08-09 19:59 | disposition home or self-care (01) ==
LOC: ED 15:39
DX: R11.0 Nausea (principal)
CPT/HCPCS: 36415; 74177; 80053; 81003; 83690; 85025; 96361; 96374; 99284; A9270; J3490; Q9967; 81001; 87086

== ENCOUNTER 2019-08-21 08:59 | Outpatient (CLI) | payer BC, MEDICAID ==
[2019-08-21 10:18] LABS: THYROID STIMULATING HORMONE 2.02 uIU/mL (0.34-5.60)
[2019-08-21 10:20] LABS: FREE T4 (FREE THYROXINE) 0.69 ng/dL (0.58-1.64)
== END 2019-08-21 09:00 | disposition home or self-care (01) ==
LOC: LAB 08:59
PROVIDERS: ATTEND Nurse Practitioner
DX: O00.80 Other ectopic pregnancy without intrauterine pregnancy (principal); F41.9 Anxiety disorder, unspecified; K59.00 Constipation, unspecified
CPT/HCPCS: 36415; 84439; 84443; 84481; 84702

== ENCOUNTER 2019-09-03 17:09 | Emergency (ER) | payer BC, MEDICAID ==
[2019-09-03 17:18] VITALS: BP 131/84
--- NOTE | 2019-09-03 17:34 | ED Physician Documentation ---
PD HPI ABD PAIN - Stated complaint Stated Complaint: AB PX - Chief complaint Chief Complaint: Abd Pain - History obtained from History obtained from: Patient - History of Present Illness Timing - onset: Today (About a month ago I diagnosed her with a left ectopic . She was taken to the OR and it was removed. Subsequently her beta hCG went down to 2. Of note, the CT that was done preop showed no evidence of nephrolithiasis. Today she developed right mid abdominal pain and feeling unwell without vomiting or constipation.) Review of Systems Ten Systems: 10 systems reviewed and negative Constitutional: denies: Fever, Chills Eyes: reports: Reviewed and negative Throat: reports: Reviewed and negative Cardiac: reports: Reviewed and negative Respiratory: reports: Reviewed and negative PD PAST MEDICAL HISTORY - Past Medical History Cardiovascular: None, Murmur Respiratory: Asthma GI: GERD Musculoskeletal: Osteoarthritis - Past Surgical History Past Surgical History: Yes Ortho: ACL reconstruction, Shoulder arthroplasty /[employer]: Oophrectomy HEENT: Other - Present Medications Home Medications: Ambulatory Orders Medication Instructions Recorded Confirmed Ipratropium/Albuterol [Combivent 1 puffs PO Q6HR 06/20/17 01/28/19 Respimat] Meloxicam [Mobic] 7.5 mg PO PRN PRN 06/20/17 01/28/19 diazePAM [Valium] 5 mg PO TID PRN #15 tablet 01/28/19 - Allergies Allergies/Adverse Reactions: Allergies Allergy/AdvReac Type Severity Reaction Status Date / Time avocado Allergy Anaphylaxis Verified 09/03/19 17:18 cyclobenzaprine HCl * Allergy Anaphylaxis Verified 09/03/19 17:18 [From Flexeril] Influenza Virus Vaccines Allergy Anaphylaxis Verified 09/03/19 17:18 meperidine [From Demerol] Allergy Hives Verified 09/03/19 17:18 Opioids - Morphine Analogues AdvReac Nausea Verified 09/03/19 17:18 - Social History Does the pt smoke?: No Smoking Status: Never smoker Does the pt drink ETOH?: No Does the pt have substance abuse?: No PD ED PE NORMAL - Vitals Vital signs reviewed: Yes - General General: Alert and oriented X 3, No acute distress - HEENT HEENT: PERRL, EOMI - Neck Neck: Supple, no meningeal sign, No bony TTP - Cardiac Cardiac: RRR, No murmur - Respiratory Respiratory: No respiratory distress, Clear bilaterally - Abdomen Abdomen: Other (Mild R mid abd TTP, no G/R/M) - Back Back: No CVA TTP, No spinal TTP - Derm Derm: Normal color, Warm and dry - Extremities Extremities: No edema, No calf tenderness / cord - Neuro Neuro: Alert and oriented X 3, Normal speech Results - Vitals Vitals: Vital Signs - 24 hr 09/03/19 17:14 Temperature 36.6 C Heart Rate 72 Respiratory 14 Rate Blood Pressure 131/84 H O2 Saturation 100 Oxygen O2 Source Room air - Labs Labs: Laboratory Tests 09/03/19 09/03/19 09/03/19 17:33 18:10 18:10 WBC 5.7 RBC 4.30 Hgb 13.2 Hct 40.8 MCV 94.9 MCH 30.7 MCHC 32.4 RDW 12.6 Plt Count 235 MPV 9.6 Neut # (Auto) 3.0 Lymph # (Auto) 1.8 [place] # (Auto) 0.6 Eos # (Auto) 0.2 Baso # (Auto) 0.0 Absolute Nucleated RBC 0.00 Nucleated RBC % 0.0 Sodium 138 Potassium 4.0 Chloride 108 Carbon Dioxide 24 Anion Gap 6.0 BUN 17 Creatinine 0.7 Estimated GFR (MDRD) 90 Glucose 87 Calcium 9.5 Total Bilirubin 0.6 AST 15 ALT 15 Alkaline Phosphatase 36 L Total Protein 7.0 Albumin 4.3 Globulin 2.7 Albumin/Globulin Ratio 1.6 Lipase 35 Urine Color YELLOW Urine Clarity CLEAR Urine pH 6.0 Ur Specific [place] 1.025 Urine Protein NEGATIVE Urine Glucose (UA) NEGATIVE Urine Ketones NEGATIVE Urine Occult Blood SMALL H Urine Nitrite NEGATIVE Urine Bilirubin NEGATIVE Urine Urobilinogen 0.2 (NORMAL) Ur Leukocyte Esterase NEGATIVE Urine RBC 0-5 Urine WBC 0-3 Ur Squamous Epith Cells RARE Squamous Urine Bacteria Rare Urine Mucus Few Strands Ur Microscopic Review INDICATED Urine Culture Comments NOT INDICATED Urine HCG, Qual NEGATIVE PD MEDICAL DECISION MAKING - ED course ED course: 49-year-old woman about a month out from a left ectopic presents with right-sided abdominal and back pain today. She also has some hematuria and has trace blood in urine, but no signs of pyelonephritis. We discussed repeat imaging versus watchful waiting. Note that previous CTs had no nephroliths so that is very unlikely. Given the normal white counts she preferred watchful waiting and that seems reasonable Departure - Departure Disposition: Home, Self Care Clinical Impression: Abdominal pain Qualifiers: Abdominal location: right lower quadrant Qualified Code(s): R10.31 - Right lower quadrant pain Condition: Good Record reviewed to determine appropriate education?: Yes Instructions: ED Abdominal Pain Appendx Poss Comments: Return for worsening symptoms, especially fever. Or if worse. Otherwise also return if not better in 24 hours. Discharge Date/Time: 09/03/19 18:28
[2019-09-03 17:51] LABS: BILIRUBIN,URINE NEGATIVE (NEGATIVE); GLUCOSE, URINE (UA) NEGATIVE (NEGATIVE); KETONES,URINE (UA) NEGATIVE (NEGATIVE); LEUKOCYTE ESTERASE, URINE NEGATIVE (NEGATIVE); NITRITE,URINE NEGATIVE (NEGATIVE); OCCULT BLOOD,URINE SMALL (NEGATIVE); PROTEIN,URINE NEGATIVE (NEGATIVE); UROBILINOGEN,URINE 0.2 (NORMAL) E.U./dL (NORMAL)
[2019-09-03 17:54] LABS: CLARITY,URINE CLEAR (CLEAR); HCG UR QUAL NEGATIVE
[2019-09-03 18:05] LABS: RBC,URINE 0-5 /HPF (0-5)
[2019-09-03 18:06] LABS: BACTERIA,URINE Rare /HPF (None Seen); MUCUS,URINE Few Strands; SQUAMOUS EPITHELIAL CELL,UR RARE Squamous (<= Few)
[2019-09-03 18:15] LABS: BASOPHILS % (AUTO) 0.7 %; EOSINOPHILS # (AUTO) 0.2 10^3/uL (0.0-0.7); HGB - HEMOGLOBIN 13.2 g/dL (12.0-16.0); LYMPHOCYTES # (AUTO) 1.8 10^3/uL (1.5-3.5); LYMPHOCYTES % (AUTO) 32.6 %; MEAN CORPUSCULAR HEMOGLOBIN 30.7 pg (27.0-31.0); MEAN CORPUSCULAR HGB CONC 32.4 g/dL (32.0-36.0); MEAN CORPUSCULAR VOLUME 94.9 fL (81.0-99.0); MEAN PLATELET VOLUME 9.6 fL (7.9-10.8); MONOCYTES # (AUTO) 0.6 10^3/uL (0.0-1.0); MONOCYTES % (AUTO) 10.1 %; NEUTROPHILS % (AUTO) 53.4 %; PLT - PLATELET COUNT 235 10^3/uL (130-450); RED CELL DISTRIBUTION WIDTH 12.6 % (12.0-15.0); WHITE BLOOD COUNT 5.7 x10^3/uL (4.8-10.8)
[2019-09-03 18:29] LABS: ALBUMIN 4.3 g/dL (3.2-5.5); ALBUMIN/GLOBULIN RATIO 1.6 (1.0-2.2); BILIRUBIN,TOTAL 0.6 mg/dL (0.2-1.0); CALCIUM 9.5 mg/dL (8.5-10.3); CREATININE 0.7 mg/dL (0.4-1.0)
== END 2019-09-03 18:28 | disposition home or self-care (01) ==
LOC: ED 17:09
DX: R10.31 Right lower quadrant pain (principal); R31.9 Hematuria, unspecified; M54.9 Dorsalgia, unspecified; Z87.59 Personal history of other complications of pregnancy, childbirth and the puerperium
CPT/HCPCS: 36415; 80053; 81001; 81003; 81025; 83690; 85025; 87086; 99283

== ENCOUNTER 2020-01-01 10:04 | Outpatient (CLI) | payer BC ==
[2020-01-01 10:42] LABS: BASOPHILS % (AUTO) 0.7 %; EOSINOPHILS # (AUTO) 0.2 10^3/uL (0.0-0.7); EOSINOPHILS % (AUTO) 3.1 %; HGB - HEMOGLOBIN 12.9 g/dL (12.0-16.0); LYMPHOCYTES # (AUTO) 1.6 10^3/uL (1.5-3.5); LYMPHOCYTES % (AUTO) 28.7 %; MEAN CORPUSCULAR HEMOGLOBIN 29.4 pg (27.0-31.0); MEAN CORPUSCULAR HGB CONC 32.2 g/dL (32.0-36.0); MEAN CORPUSCULAR VOLUME 91.3 fL (81.0-99.0); MEAN PLATELET VOLUME 9.7 fL (7.9-10.8); MONOCYTES # (AUTO) 0.5 10^3/uL (0.0-1.0); MONOCYTES % (AUTO) 9.7 %; NEUTROPHILS # (AUTO) 3.1 10^3/uL (1.5-6.6); NEUTROPHILS % (AUTO) 57.4 %; PLT - PLATELET COUNT 230 10^3/uL (130-450); RED BLOOD COUNT 4.39 10^6/uL (4.20-5.40); WHITE BLOOD COUNT 5.4 x10^3/uL (4.8-10.8)
[2020-01-01 11:05] LABS: ALBUMIN 4.1 g/dL (3.2-5.5); ALBUMIN/GLOBULIN RATIO 1.5 (1.0-2.2); ALKALINE PHOSPHATASE 31 IU/L (42-121); ALT ALANINE AMINOTRANSFERASE 16 IU/L (10-60); AST ASPARTATE AMINOTRANSFERASE 15 IU/L (10-42); BILIRUBIN,TOTAL 0.7 mg/dL (0.2-1.0); BUN - BLOOD UREA NITROGEN 21 mg/dL (6-20); CALCIUM 9.4 mg/dL (8.5-10.3); CARBON DIOXIDE - CO2 22 mmol/L (21-32); CHLORIDE 108 mmol/L (101-111); CREATININE 0.6 mg/dL (0.4-1.0); GFR - MDRD 107 (>89); GLUCOSE 98 mg/dL (70-100); SODIUM 137 mmol/L (135-145); TOTAL PROTEIN 6.8 g/dL (6.7-8.2)
[2020-01-01 11:14] LABS: CRP - C-REACTIVE PROTEIN < 1.0 mg/dL (0-1.0)
[2020-01-01 15:05] LABS: RHEUMATOID FACTOR NEGATIVE (Negative)
== END 2020-01-01 10:05 | disposition home or self-care (01) ==
LOC: LAB 10:04
PROVIDERS: ATTEND Nurse Practitioner
DX: R10.9 Unspecified abdominal pain (principal); R63.5 Abnormal weight gain; M35.3 Polymyalgia rheumatica; K76.89 Other specified diseases of liver; N28.1 Cyst of kidney, acquired; K59.00 Constipation, unspecified
CPT/HCPCS: 36415; 80053; 85025; 85651; 86038; 86140; 86200; 86430

== ENCOUNTER 2020-01-06 16:51 | Outpatient (CLI) | payer BC ==
[2020-01-06] MEDS ORDERED: IOVERSOL 320 50 ML VIAL ONE (17:01)
[2020-01-06] MEDS ORDERED: IOVERSOL 320 100 ML VIAL IVP ONE ×2 (17:01→19:20)
[2020-01-06] MEDS ORDERED: IOVERSOL 320 50 ML VIAL PO ONE (19:20)
--- NOTE | 2020-01-06 21:26 | CT Report ---
Reason: ABDOMINAL PAIN, HEPATIC CYST, RENAL CYST Procedure Date: 01/06/2020 Accession Number: [id number] / [id number] Procedure: CT - Abdomen/Pelvis W CPT Code: Final Report FULL RESULT: EXAM: CT ABDOMEN AND PELVIS EXAM DATE: 01/06/2020 07:16 PM. CLINICAL HISTORY: ABDOMINAL PAIN, HEPATIC CYST, RENAL CYST. COMPARISONS: ABDOMEN/PELVIS W/ 08/09/2019 6:25 PM. TECHNIQUE: Routine helical CT imaging was performed through the abdomen and pelvis. IV contrast: OPTIRAY 320. Enteric contrast: No. Reconstructions: Coronal and sagittal. In accordance with CT protocol optimization, one or more of the following dose reduction techniques were utilized for this exam: automated exposure control, adjustment of mA and/or KV based on patient size, or use of iterative reconstructive technique. FINDINGS: Lung Bases: Unremarkable. Liver: A subcentimeter left hepatic cyst noted. No masses. Gallbladder/Bile Ducts: Unremarkable. Spleen: Normal. Pancreas: Normal. Adrenal Glands: Normal. Kidneys: A 1 cm renal cysts in superior pole of right kidney No masses or hydronephrosis. Peritoneal Cavity/Bowel: Normal. No free fluid, free air or adenopathy. No masses or acute inflammatory process. The appendix is well visualized and normal. Pelvic Organs: An oval-shaped hypodense lesion in right adnexa with suggestion of a septation. Lesion measures 5.8 x 3.1 cm. Differentials include hydrosalpinx, PID, ? Early right tubo-ovarian abscess, right ovarian cysts. Left adnexa and ovary appears unremarkable. Vasculature: No aneurysms or other significant abnormality. Bones: No significant abnormality. Other: None. IMPRESSION: An oval-shaped hypodense lesion in right adnexa with suggestion of a septation. Lesion measures 5.8 x 3.1 cm. Differentials include hydrosalpinx, PID, ? Early right tubo-ovarian abscess, right ovarian cysts. Left adnexa and ovary appears unremarkable. Further evaluation to be considered on pelvic ultrasound. RADIA
== END 2020-01-06 16:52 | disposition home or self-care (01) ==
LOC: DI 16:51
PROVIDERS: ATTEND Nurse Practitioner
DX: K76.89 Other specified diseases of liver (principal); N28.1 Cyst of kidney, acquired; R10.9 Unspecified abdominal pain; K59.00 Constipation, unspecified; R63.5 Abnormal weight gain; N94.89 Other specified conditions associated with female genital organs and menstrual cycle
CPT/HCPCS: 74177; Q9967

== ENCOUNTER 2020-01-07 17:32 | Outpatient (CLI) | payer BC ==
--- NOTE | 2020-01-07 22:58 | Ultrasound Report ---
Reason: ABD WALL PAIN, INCISIONAL PAIN- EVAL RUQ AND INCISION Procedure Date: 01/07/2020 Accession Number: [id number] / [id number] Procedure: US - Abdomen Limited CPT Code: Final Report FULL RESULT: EXAM: ABDOMEN ULTRASOUND LIMITED, RUQ EXAM DATE: 01/07/2020 10:46 PM. CLINICAL HISTORY: ABD WALL PAIN, INCISIONAL PAIN- EVAL RUQ AND INCISION. COMPARISON: ABDOMEN/PELVIS W/ 01/06/2020 6:38 PM. TECHNIQUE: Real-time scanning was performed with static images obtained. FINDINGS: Liver: Left lobe cyst measuring 0.5 x 0.4 cm. Right lobe cyst measuring 0.9 x 1.4 cm. 16.2 cm. Main portal vein flow: Hepatopetal. Gallbladder: Contracted. No stones, wall thickening, or sonographic Rothman's sign. Biliary System: CBD measures 4 mm. No intrahepatic or extrahepatic ductal dilatation. Other: Right kidney measures 11.7 cm. There is a cyst measuring 1.3 x 0.8 cm containing some small calcifications measuring 3-4 mm. No hydronephrosis seen. The patient is tender over the area of the right kidney. Visualized portions of the pancreas appear normal. No abnormalities seen in the area of right lower quadrant incision. IMPRESSION: 1. Contracted gallbladder. No cholelithiasis or cholecystitis identified. 2. Small right renal cyst containing several calcifications measuring 3-4 mm. There is tenderness with scanning over the right kidney. 3. No incisional abnormality seen. RADIA
== END 2020-01-07 23:59 | disposition home or self-care (01) ==
LOC: DI 17:32
PROVIDERS: ATTEND Nurse Practitioner
DX: R10.9 Unspecified abdominal pain (principal); Q61.01 Congenital single renal cyst
CPT/HCPCS: 76705

== ENCOUNTER 2020-01-07 19:31 | Outpatient (CLI) | payer BC ==
--- NOTE | 2020-01-07 22:09 | Ultrasound Report ---
Reason: RT SIDE OVARIAN CYST Procedure Date: 01/07/2020 Accession Number: [id number] / [id number] Procedure: US - Pelvic w/Transvaginal CPT Code: Addended Final Report FULL RESULT: EXAM: PELVIC ULTRASOUND EXAM DATE: 01/07/2020 09:32 PM. CLINICAL HISTORY: Abdominal pain. Abnormal right ovary on CT. COMPARISON: ABDOMEN/PELVIS W/ 01/06/2020 6:38 PM PEL NON OB W/TV DOP LTD 08/04/2019 6:31 PM. TECHNIQUE: Realtime transabdominal pelvic scan performed to identify the uterus and adnexa and as an overview of other pelvic structures, followed by transvaginal scan to provide greater detail of the uterus and adnexa, with static image documentation. FINDINGS: Uterus: 8.6 x 4.4 x 4.8 cm, volume 95 cc. Anteverted position. Normal overall size and echotexture. Masses: None. Endometrium: 15 mm. No focal abnormality. Cervix: Unremarkable. Right Ovary: 5.8 x 5.6 x 5.7 cm, volume 97 cc. Simple cyst measuring 3.8 x 4.0 x 4.1 cm. Heterogeneous cyst measuring 3.4 x 3.0 x 3.3 cm. Complex septated cyst measuring 2.4 x 2.5 x 2.8 cm. Normal Doppler flow signal seen in the ovary. Left Ovary: 2.9 x 2.3 x 2.6 cm, volume 8.9 cc. Normal echotexture and blood flow. Free Fluid: None. Other: None. IMPRESSION: 1. Enlarged right ovary measuring 97 cc with a dominant simple cyst and 2 additional complex cysts. No torsion seen. Recommend sonographic follow-up in 6-10 weeks. 2. Left ovary is unremarkable. 3. Mildly thickened endometrium measuring 15 mm. This can also be reassessed at sonographic follow-up. KERWINA The call report notification system was initiated by Dr. Michael Alvarenga at 10:08 PM on 01/07/2020. ADDENDUM: 01/07/20 22:10 The above call report findings were discussed with Geovanna Charles by Dr. Michael Alvarenga at 10:10 PM on 01/07/2020.
== END 2020-01-07 19:32 | disposition home or self-care (01) ==
LOC: DI 19:31
PROVIDERS: ATTEND Nurse Practitioner
DX: N83.291 Other ovarian cyst, right side (principal); R93.89 Abnormal findings on diagnostic imaging of other specified body structures
CPT/HCPCS: 76830; 76856

== ENCOUNTER 2020-01-12 18:11 | Outpatient (CLI) | payer BC | END 2020-01-12 18:12 | disposition home or self-care (01) | LOC: LAB 18:11 | PROVIDERS: ATTEND Obstetrics & Gynecology | DX: N83.291 Other ovarian cyst, right side (principal) | CPT/HCPCS: 36415; 82378; 86304 ==

== ENCOUNTER 2020-02-02 10:32 | Outpatient (CLI) | payer BC ==
[2020-02-02 10:46] LABS: HGB - HEMOGLOBIN 14.9 g/dL (12.0-16.0); MEAN CORPUSCULAR HEMOGLOBIN 30.4 pg (27.0-31.0); MEAN CORPUSCULAR HGB CONC 32.3 g/dL (32.0-36.0); MEAN CORPUSCULAR VOLUME 94.1 fL (81.0-99.0); MEAN PLATELET VOLUME 10.2 fL (7.9-10.8); RED BLOOD COUNT 4.9 10^6/uL (4.20-5.40); RED CELL DISTRIBUTION WIDTH 14.5 % (12.0-15.0); WHITE BLOOD COUNT 6.7 x10^3/uL (4.8-10.8)
== END 2020-02-02 10:33 | disposition home or self-care (01) ==
LOC: LAB 10:32
PROVIDERS: ATTEND Obstetrics & Gynecology
DX: N92.0 Excessive and frequent menstruation with regular cycle (principal)
CPT/HCPCS: 36415; 85027

== ENCOUNTER 2020-02-11 15:56 | Outpatient (CLI) | payer BC ==
[2020-02-11 16:09] LABS: ABSOLUTE RETICS # AUTO 0.075 10^6/uL (0.020-0.110); BASOPHILS # (AUTO) 0.1 10^3/uL (0.0-0.1); BASOPHILS % (AUTO) 0.8 %; EOSINOPHILS # (AUTO) 0.3 10^3/uL (0.0-0.7); EOSINOPHILS % (AUTO) 4.6 %; HGB - HEMOGLOBIN 13.3 g/dL (12.0-16.0); LYMPHOCYTES # (AUTO) 2.1 10^3/uL (1.5-3.5); LYMPHOCYTES % (AUTO) 32.3 %; MEAN CORPUSCULAR HEMOGLOBIN 29.7 pg (27.0-31.0); MEAN CORPUSCULAR HGB CONC 31.7 g/dL (32.0-36.0); MEAN CORPUSCULAR VOLUME 93.5 fL (81.0-99.0); MEAN PLATELET VOLUME 9.5 fL (7.9-10.8); MONOCYTES # (AUTO) 0.6 10^3/uL (0.0-1.0); MONOCYTES % (AUTO) 9.6 %; NEUTROPHILS # (AUTO) 3.4 10^3/uL (1.5-6.6); NEUTROPHILS % (AUTO) 52.4 %; PLT - PLATELET COUNT 244 10^3/uL (130-450); RED BLOOD COUNT 4.48 10^6/uL (4.20-5.40); RED CELL DISTRIBUTION WIDTH 14.4 % (12.0-15.0); WHITE BLOOD COUNT 6.6 x10^3/uL (4.8-10.8)
[2020-02-11 16:28] LABS: % IRON SATURATION 21 % (20-50); IRON 103 ug/dL (28-170); TOTAL IRON BINDING CAPACITY 498 ug/dL (250-450); TRANSFERRIN 356 mg/dL (192-382)
== END 2020-02-11 15:57 | disposition home or self-care (01) ==
LOC: LAB 15:56
PROVIDERS: ATTEND Nurse Practitioner
DX: R53.83 Other fatigue (principal); N92.0 Excessive and frequent menstruation with regular cycle
CPT/HCPCS: 36415; 82728; 83540; 84466; 85025; 85045

== ENCOUNTER 2020-11-03 07:00 | Outpatient (CLI) | payer BC, OTHER ==
[2020-11-03 22:16] LABS: CANDIDA GROUP DNA NEGATIVE (NEGATIVE); CANDIDA KRUSEI DNA NEGATIVE (NEGATIVE); TRICHOMONAS VAGINALIS DNA NEGATIVE (NEGATIVE)
[2020-11-03 23:30] LABS: TRICHOMONAS VAGINALIS DNA NEGATIVE (NEGATIVE)
== END 2020-11-03 23:59 | disposition home or self-care (01) ==
LOC: LAB.R 07:00
PROVIDERS: ATTEND Obstetrics & Gynecology
DX: Z11.3 Encounter for screening for infections with a predominantly sexual mode of transmission (principal); L29.8 Other pruritus
CPT/HCPCS: 87491; 87591; 87661; 87801

== ENCOUNTER 2020-11-10 14:52 | Outpatient (CLI) | payer OTHER ==
--- NOTE | 2020-11-10 18:44 | Ultrasound Report ---
PROCEDURE: Pelvic w/Transvaginal INDICATIONS: MENORRHAGIA, OVARIAN CYST, RT TECHNIQUE: Real-time scanning was performed of the pelvic organs, with image documentation. Additional endovagi nal scanning was necessary due to incomplete visualization of the adnexal and endometrial structures by transabdominal scanning. COMPARISON: Pelvic ultrasound dated 01/07/2020 and 08/04/2019.. FINDINGS: Transabdominal scanning: Limited scanning through the kidneys shows no hydronephrosis. No pathologi c free abdominal or pelvic fluid. Endovaginal scanning: Uterus: Uterus is normal in size at 8 x 4.2 x 4.8 cm. The endometrium measures 12 mm in combined th ickness. Heterogeneous myometrial echotexture is seen. Hypoechoic area involving the right endometri um which may represent a small fibroid measures 9 x 9 x 10 mm in size. There is no endometrial mass o r fluid. Ovaries: Right ovary measures 2.5 x 1.8 x 12.6 cm in size. Left ovary measures 2.9 x 3.4 x 2.8 cm in size. Possible hemorrhagic cyst or complex cyst is seen in right ovary measures 1.3 x 1.4 x 1.5 cm i n size. Similarly appearing cyst is seen in left ovary measures 1.8 x 1.8 x 1.7 cm in size. No defini te solid-appearing ovarian lesion is seen. IMPRESSION: 1. Likely complex cyst or hemorrhagic cyst and bilateral ovary as above. No definite solid-appearing ovarian lesion. 2. Heterogeneous myometrial echotexture with suggestion of small right uterine fibroid as above. No e ndometrial mass or fluid. No pelvic free fluid. Reviewed by: Kenan Harkins MD on 11/10/2020 6:42 PM PST Approved by: Kenan Harkins MD on 11/10/2020 6:42 PM PST Station ID: [id number]
--- NOTE | 2020-11-10 18:45 | Ultrasound Report ---
PROCEDURE: Retroperitoneal INDICATIONS: RENAL CYST, RT TECHNIQUE: Real-time scanning was performed of the retroperitoneal organs, with image documentation. COMPARISON: CT of abdomen and pelvis dated 01/06/2020 and 08/09/2019. Ultrasound of abdomen dated 01/07. FINDINGS: Kidneys: Kidneys are normal in size. Right kidney measures 10.7 cm long; left kidney measures 10.4 cm long. Right renal cortical thickness is 1.7 cm; left renal cortical thickness is 1.7 cm. No jaylin d masses, hydronephrosis, or nephrolithiasis. Again noted is 1.8 x 1.5 x 2.1 cm simple appearing cyst seen in lower pole of right kidney unchanged from prior study. Prevoid bladder volume is 353 cc and post void residual is 10.9 cc. No gross bladder wall abnormality is seen. Bilateral ureteral jets are seen during the study. IMPRESSION: 1. Simple cyst in lower pole of right kidney unchanged from prior study. No solid-appearing renal les ion. No shadowing renal stone or hydronephrosis. 2. Normal-appearing urinary bladder. Reviewed by: Kenan Harkins MD on 11/10/2020 6:44 PM PST Approved by: Kenan Harkins MD on 11/10/2020 6:44 PM PST Station ID: [id number]
== END 2020-11-10 14:53 | disposition home or self-care (01) ==
LOC: DI 14:52
PROVIDERS: ATTEND Obstetrics & Gynecology
DX: N92.0 Excessive and frequent menstruation with regular cycle (principal); N83.201 Unspecified ovarian cyst, right side; N83.202 Unspecified ovarian cyst, left side; N28.1 Cyst of kidney, acquired

== ENCOUNTER 2020-11-15 14:19 | Outpatient (CLI) | payer OTHER ==
[2020-11-15 14:48] LABS: HGB - HEMOGLOBIN 14.8 g/dL (12.0-16.0); MEAN CORPUSCULAR HEMOGLOBIN 30.5 pg (27.0-31.0); MEAN CORPUSCULAR HGB CONC 32.9 g/dL (32.0-36.0); MEAN CORPUSCULAR VOLUME 92.6 fL (81.0-99.0); MEAN PLATELET VOLUME 9.4 fL (7.9-10.8); RED BLOOD COUNT 4.86 10^6/uL (4.20-5.40); WHITE BLOOD COUNT 7.4 x10^3/uL (4.8-10.8)
[2020-11-15 14:58] LABS: ALBUMIN 4.7 g/dL (3.2-5.5); ALBUMIN/GLOBULIN RATIO 1.7 (1.0-2.2); BILIRUBIN,TOTAL 0.5 mg/dL (0.2-1.0); CALCIUM 9.7 mg/dL (8.5-10.3); CREATININE 0.7 mg/dL (0.4-1.0); TOTAL PROTEIN 7.4 g/dL (6.7-8.2)
[2020-11-15] MEDS ORDERED: IOVERSOL 320 100 ML VIAL IVP ONE ×2 (15:02→15:51)
--- NOTE | 2020-11-15 16:15 | CT Report ---
PROCEDURE: IVP INDICATIONS: HX OF NEPHROLITHIASIS RENAL CYST PAIN TECHNIQUE: After the administration of intravenous contrast, 5 mm thick sections acquired from the diaphragms to the symphysis. 5 mm thick coronal and sagittal reformats were acquired. For radiation dose reducti on, the following was used: automated exposure control, adjustment of mA and/or kV according to kahlil ent size. COMPARISON: Retroperitoneal ultrasound 11/10/2020; CT abdomen and pelvis 01/06/2020 FINDINGS: Image quality: Excellent. Lung bases: Lung bases are clear. Heart size is normal. Urinary system: Both kidneys are normal in size with symmetric nephrograms. Small simple cysts are pr esent in the right kidney, unchanged from recent comparison ultrasound. No urinary tract calculus or hydroureteronephrosis. Urinary bladder is normal. Solid organs: Liver and spleen are normal in size and enhancement. Gallbladder unremarkable. Bilia ry system is non dilated. Pancreas enhances normally. No adrenal nodules. Peritoneum and bowel: Bowel loops demonstrate normal wall thickness and caliber. No free fluid or a ir. Nodes and vessels: No retroperitoneal or mesenteric adenopathy by size criteria. Aorta and inferior vena cava are normal in size. Abdominal wall: No ventral hernias. Pelvis: No pathologic free pelvic fluid. No inguinal hernias or adenopathy. Bones: No suspicious bony lesions. No vertebral body compression fractures. IMPRESSION: No urinary tract calculus, hydroureteronephrosis, or other significant abnormality of the urinary sys tem. Two small simple appearing cysts in the right kidney are similar to comparison studies. Reviewed by: Kirby Varma MD on 11/15/2020 4:14 PM PST Approved by: Kirby Varma MD on 11/15/2020 4:14 PM PST Station ID: [id number]
== END 2020-11-15 14:20 | disposition home or self-care (01) ==
LOC: LAB 14:19 → DI 14:20
PROVIDERS: ATTEND Obstetrics & Gynecology
DX: N28.1 Cyst of kidney, acquired (principal); N28.9 Disorder of kidney and ureter, unspecified; Z87.442 Personal history of urinary calculi; R10.9 Unspecified abdominal pain
CPT/HCPCS: 36415; 74178; 80053; 82150; 83690; 85027; Q9967

== ENCOUNTER 2020-12-13 11:14 | Day surgery (SDC) | payer OTHER ==
[2020-12-13] MEDS ORDERED: LACTATED RINGERS 1,000 ML IV ONE ×2 (11:50→15:58)
[2020-12-13] MEDS ORDERED: LIDO GARGLE 30 ML BOTTLE ONE (14:42)
[2020-12-13] MEDS ORDERED: MIDAZOLAM 2 MG/2 ML VIAL ONE ×5 (15:03→15:50)
[2020-12-13] MEDS ORDERED: fentaNYL 250 MCG/5 ML VIAL ONE (15:03)
[2020-12-13] MEDS ORDERED: LIDO GARGLE 30 ML BOTTLE PO ONE (15:06)
[2020-12-13] MEDS ORDERED: BENZOCAINE/TETRACAINE/BUTAMBEN 20 GM TOP ONE (15:06)
[2020-12-13] MEDS ORDERED: ONDANSETRON 4 MG/2 ML VIAL ONE (16:34)
[2020-12-13 16:39] VITALS: BP 107/67
[2020-12-13] MEDS ORDERED: diphenhydrAMINE INJ 50 MG/ML VIAL ONE (16:59)
== END 2020-12-13 11:15 | disposition home or self-care (01) ==
LOC: SDS 11:14
PROVIDERS: ATTEND Surgery
PROC: 0DB48ZX Excision of Esophagogastric Junction, Via Natural or Artificial Opening Endoscopic, Diagnostic (ICD-10-PCS; 2020-12-13)
PROC: 0DB98ZZ Excision of Duodenum, Via Natural or Artificial Opening Endoscopic (ICD-10-PCS; 2020-12-13)
PROC: 0DBB8ZX Excision of Ileum, Via Natural or Artificial Opening Endoscopic, Diagnostic (ICD-10-PCS; 2020-12-13)
PROC: 0DBE8ZX Excision of Large Intestine, Via Natural or Artificial Opening Endoscopic, Diagnostic (ICD-10-PCS; 2020-12-13)
PROC: 0DB98ZX Excision of Duodenum, Via Natural or Artificial Opening Endoscopic, Diagnostic (ICD-10-PCS; principal; 2020-12-13 12:15)
PROC: 0DB78ZX Excision of Stomach, Pylorus, Via Natural or Artificial Opening Endoscopic, Diagnostic (ICD-10-PCS; 2020-12-13 12:15)
DX: R10.9 Unspecified abdominal pain (principal); R10.10 Upper abdominal pain, unspecified; K29.70 Gastritis, unspecified, without bleeding; K21.9 Gastro-esophageal reflux disease without esophagitis; K64.8 Other hemorrhoids; R10.13 Epigastric pain; Z83.71 Family history of colonic polyps; Z87.891 Personal history of nicotine dependence
CPT/HCPCS: 43239; 43251; 45380; A9270; J1200; J3010; J7120

== ENCOUNTER 2021-01-03 15:21 | Outpatient (CLI) | payer OTHER ==
[2021-01-03 15:52] LABS: BASOPHILS # (AUTO) 0.1 10^3/uL (0.0-0.1); BASOPHILS % (AUTO) 0.9 %; EOSINOPHILS # (AUTO) 0.3 10^3/uL (0.0-0.7); EOSINOPHILS % (AUTO) 4.2 %; HGB - HEMOGLOBIN 14.4 g/dL (12.0-16.0); LYMPHOCYTES # (AUTO) 2.1 10^3/uL (1.5-3.5); MEAN CORPUSCULAR HEMOGLOBIN 31.2 pg (27.0-31.0); MEAN CORPUSCULAR HGB CONC 33.5 g/dL (32.0-36.0); MEAN CORPUSCULAR VOLUME 93.1 fL (81.0-99.0); MEAN PLATELET VOLUME 9.6 fL (7.9-10.8); MONOCYTES # (AUTO) 0.8 10^3/uL (0.0-1.0); MONOCYTES % (AUTO) 9.6 %; NEUTROPHILS # (AUTO) 4.6 10^3/uL (1.5-6.6); PLT - PLATELET COUNT 263 10^3/uL (130-450); RED BLOOD COUNT 4.62 10^6/uL (4.20-5.40); RED CELL DISTRIBUTION WIDTH 13.1 % (12.0-15.0); WHITE BLOOD COUNT 7.9 x10^3/uL (4.8-10.8)
[2021-01-03 16:05] LABS: ALBUMIN 4.5 g/dL (3.2-5.5); ALBUMIN/GLOBULIN RATIO 1.7 (1.0-2.2); BILIRUBIN,TOTAL 0.4 mg/dL (0.2-1.0); CALCIUM 10.1 mg/dL (8.5-10.3); CREATININE 0.6 mg/dL (0.4-1.0); TOTAL PROTEIN 7.2 g/dL (6.7-8.2)
[2021-01-03 17:51] LABS: HCG,QUALITATIVE BLOOD NEGATIVE
== END 2021-01-03 15:22 | disposition home or self-care (01) ==
LOC: LAB 15:21
PROVIDERS: ATTEND Obstetrics & Gynecology
DX: Z01.812 Encounter for preprocedural laboratory examination (principal); N92.0 Excessive and frequent menstruation with regular cycle; N94.6 Dysmenorrhea, unspecified
CPT/HCPCS: 36415; 80053; 84703; 85025

== ENCOUNTER 2021-01-11 06:30 | Day surgery (SDC) | payer OTHER ==
[~2021-01-11 06:30] MED LIST changes: +ACETAMINOPHEN 1,000 MG/100 ML 100 ML IV ONE; +CELECOXIB 100 MG CAPSULE PO ONE; +GABAPENTIN 400 MG CAPSULE ONE; -HYDROmorphone 0.5 MG/0.5 ML SYRINGE IVP PRN; -LORazepam 2 MG/ML VIAL IVP PRN; -ONDANSETRON 4 MG/2 ML VIAL IVP PRN; +ceFAZolin 2 GM/50 ML 2 GM/50 ML BAG IV ONE; -oxyCODONE 5 MG TABLET PO PRN
[2021-01-11 06:54] LABS: HCG UR QUAL NEGATIVE
--- NOTE | 2021-01-11 07:26 | ANESTHESIA ---
Pre-Anesthesia VS, & Labs - Diagnosis dysnemmorrhea - Procedure Lap TVH with B oophorectomy Vital Signs: Temp Pulse Resp BP Pulse Ox 37.1 C 73 18 125/80 98 01/11/21 06:51 01/11/21 06:51 01/11/21 06:51 01/11/21 06:51 01/11/21 06:51 Height: 5 ft 1.5 in Weight (kg): 80.7 kg Body Mass Index: 33.0 BMI Classification: Obese - NPO >8 hours - Is Patient ?: No - Lab Results Lab results reviewed: Yes Home Medications and Allergies Home Medications: Ambulatory Orders Krill Oil/Hyaluronic/Astaxanth [Move Free Ultra [place] Jnt Plus] 1 cap PO DAILY 01/03/21 Omeprazole 20 mg PO DAILY 01/03/21 Psyllium [Metamucil] 1 each PO DAILY 01/03/21 polyethylene glycoL 3350 [Miralax] 17 gm PO DAILY 01/03/21 Joint Ease 01/11/21 Ipratropium/Albuterol [Combivent Respimat] 1 puffs PO Q6HR 06/20/17 Meloxicam [Mobic] 7.5 mg PO PRN PRN 06/20/17 Krill Oil/Hyaluronic/Astaxanth [Move Free Ultra [place] Jnt Plus] 1 cap PO DAILY 01/03/21 Omeprazole 20 mg PO DAILY 01/03/21 Psyllium [Metamucil] 1 each PO DAILY 01/03/21 polyethylene glycoL 3350 [Miralax] 17 gm PO DAILY 01/03/21 Joint Ease 01/11/21 Allergies/Adverse Reactions: Allergies Allergy/AdvReac Type Severity Reaction Status Date / Time avocado Allergy Anaphylaxis Verified 12/13/20 11:36 cyclobenzaprine HCl * Allergy Anaphylaxis Verified 12/13/20 11:36 [From Flexeril] Influenza Virus Vaccines Allergy Anaphylaxis Verified 12/13/20 11:36 iodine Allergy Rash Verified 01/11/21 07:08 meperidine [From Demerol] Allergy Hives Verified 12/13/20 11:36 Opioids - Morphine Analogues AdvReac Nausea Verified 12/13/20 11:36 Anes History & Medical History - Anesthetic History Family history of Anesthesia Complications: Denies Family history of Malignant Hyperthermia: Denies - Medical History Cardiovascular: reports: None Pulmonary: reports: None Gastrointestinal: reports: None Urinary: reports: Kidney stones Musculoskeletal: reports: Other Endocrine/Autoimmune: reports: None Skin: reports: None Smoking Status: Never smoker - Surgical History General: reports: Colonoscopy, EGD Eyes Ears Nose Throat (EENT): reports: Other Urologic: reports: Ureterolithotomy (stones) Gynecologic: reports: Endometrial ablation, Tubal ligation, Other Neurologic: reports: Other Orthopedic: reports: Knee replacement, ACL reconstruction, Shoulder arthroplasty, Spine surgery Exam General: Oriented x3, Cooperative Dental: WNL Mouth Openin Fingerbreadth Neck Mobility: Normal Mallampati classification: II Thyromental Distance: 4-6 cm Respiratory: Lungs clear Cardiovascular: Regular rate Abdomen: Normal bowel sounds Extremities: No clubbing Neurological: Normal gait Mental/Cognitive Status: Alert/Oriented X3 Cognitive Status: Within normal limits Plan Anesthesia Type: General, Transverse Abdominis Plane (TAP) Block Regional Block: Per Surgeon's request for Post Op pain control Consent for Procedure(s) Verified and Reviewed: Yes Code Status: Attempt Resuscitation ASA classification: 2-Mild systemic disease Is this case an emergency?: No
[2021-01-11] MEDS ORDERED: LIDOCAINE 2%-EPI 1:100000 20 ML MDV ONE (07:34)
[2021-01-11] MEDS ORDERED: BUPIVACAINE 0.5% PF 30 ML VIAL ONE (07:34)
[2021-01-11] MEDS ORDERED: METHYLENE BLUE 0.5% 50 MG/10 ML AMPULE ONE (07:44)
[2021-01-11] MEDS ORDERED: MIDAZOLAM 2 MG/2 ML VIAL ONE (07:45)
[2021-01-11] MEDS ORDERED: fentaNYL 100 MCG/2 ML VIAL ONE ×2 (07:46→09:22)
[2021-01-11] MEDS ORDERED: PHENAZOPYRIDINE 100 MG TABLET PO ONE (07:48)
[2021-01-11] MEDS ORDERED: ePHEDrine 50 MG/ML VIAL IVP ONE (08:55)
[2021-01-11] MEDS ORDERED: DEXAMETHASONE 4 MG/ML VIAL ONE (09:03)
[2021-01-11] MEDS ORDERED: KETOROLAC 30 MG/ML VIAL ONE (09:03)
[2021-01-11] MEDS ORDERED: ONDANSETRON 4 MG/2 ML VIAL ONE (09:03)
[2021-01-11] MEDS ORDERED: diphenhydrAMINE INJ 50 MG/ML VIAL ONE (09:03)
[2021-01-11] MEDS ORDERED: BUPIVACAINE 0.25% PF 30 ML VIAL SUBQ ONE (09:34)
[2021-01-11] MEDS ORDERED: LIDOCAINE 2%-EPI 1:100000 20 ML MDV SUBQ ONE (09:34)
[2021-01-11] MEDS ORDERED: NEOSTIGMINE 1 MG/1 ML 10 ML MDV ONE (11:02)
[2021-01-11] MEDS ORDERED: GLYCOPYRROLATE 1 MG/5 ML VIAL ONE (11:02)
[2021-01-11] MEDS ORDERED: ONDANSETRON 4 MG/2 ML VIAL IVP PRN ×2 (11:03→11:18)
[2021-01-11] MEDS ORDERED: oxyCODONE 5 MG TABLET PO PRN (11:03)
[2021-01-11] MEDS ORDERED: ACETAMINOPHEN 1,000 MG/100 ML 100 ML IV PRN (11:04)
[2021-01-11] MEDS ORDERED: KETOROLAC 30 MG/ML VIAL IVP PRN (11:05)
[2021-01-11] MEDS ORDERED: LACTATED RINGERS 1,000 ML IV ONE (11:09)
--- NOTE | 2021-01-11 11:12 | OPERATIVE REPORT ---
Operative Report - General Procedure Date: 01/11/21 Planned Procedure: TLH with RACHEL, Cysto Pre-Op Diagnosis: Menorrhagia dysmenorrhea Procedure Performed: Same - Procedure Note Primary Surgeon: Anthony Correa MD Secondary Surgeon: Irene Copeland Anesthesia Provider: Heydi Ang Anesthesia Technique: General ET tube Pathology: Uterus with ovaries IV Fluids (mL): 1,800 Estimated Blood Loss (mL): 75 Urine Output (mL): 600
[2021-01-11] MEDS ORDERED: HYDROmorphone 0.5 MG/0.5 ML SYRINGE IVP PRN (11:18)
[2021-01-11] MEDS ORDERED: ATROPINE ABBOJECT 1 MG/10 ML SYRINGE IVP PRN (11:18)
[2021-01-11] MEDS ORDERED: fentaNYL 100 MCG/2 ML VIAL IVP PRN (11:18)
[2021-01-11] MEDS ORDERED: MORPHINE 2 MG/ML CARPUJECT IVP PRN (11:18)
[2021-01-11] MEDS ORDERED: NALOXONE 0.4 MG/ML VIAL IVP PRN (11:18)
[2021-01-11] MEDS ORDERED: ePHEDrine 50 MG/ML VIAL IVP PRN (11:18)
[2021-01-11] MEDS ORDERED: METOCLOPRAMIDE 10 MG/2 ML VIAL IVP PRN (11:18)
--- NOTE | 2021-01-11 11:36 | OPERATIVE REPORT ---
DATE OF SERVICE: 01/11/2021 Physician: Anthony Correa MD PREOPERATIVE DIAGNOSES: 1. Severe dysmenorrhea, menorrhagia. 2. Status post bilateral salpingectomy. POSTOPERATIVE DIAGNOSES: 1. Severe dysmenorrhea, menorrhagia. 2. Status post bilateral salpingectomy. PROCEDURE PERFORMED: Total laparoscopic hysterectomy with bilateral oophorectomy and cystoscopy. SURGEON: Anthony Correa MD. WEATHER REPORTER: Irene Copeland MD. ANESTHESIA PROVIDER: Heydi Ang CRNA. ANESTHETIC: General via ET tube. FINDINGS: Upon entering the abdominal cavity, the uterus and tubes appear to be free of adhesions. The tubes were previously removed, as previously noted. There were some adhesions of the omentum to the right anterior abdominal wall above the umbilicus. DESCRIPTION OF PROCEDURE: Following adequate endotracheal anesthesia, patient was placed in dorsal lithotomy position in Cesar stirrups. At this point a pelvic examination was performed. The cervix appeared to reside very high in the pelvic cavity. She was then prepped and draped in the usual fashion. A timeout was performed, at which concerns were addressed. A speculum was placed in the vagina. The cervix was visualized, grasped with a ring forceps and then a single-tooth tenaculum. The cervix was dilated up to 7 mm and then sounded to 9 cm. A 3.5 mm [employer] uterine manipulator was placed. The balloons were insufflated. The full decator operator's gloves were changed, and then a stab wound was made in the subumbilical area with a #15 blade. A 5 mm trocar and sheath were placed without difficulty. There was no evidence of any injury at site of insertion. A left mid quadrant incision was made with a #15 blade, and then a 5 mm port was placed under direct visualization following local anesthesia with 0.5 Marcaine with 2% lidocaine with epinephrine. At this point, there was evidence of adhesions of the omentum to the right anterior abdominal wall. This was above the umbilicus. These were taken down with the LigaSure. A right mid quadrant port was placed without difficulty. At this point, the pelvis was inspected in its entirety. Both ureters were identified. The right infundibulopelvic ligament was triply cauterized and transected, this was carried down to, and the round ligament was likewise doubly cauterized and transected. The anterior leaf of the broad ligament was split, and then this was transected across the lower uterine segment. This was all accomplished utilizing a blunt tipped LigaSure. The posterior leaf of the broad ligament was also transected with the LigaSure. The uterine vessels were identified, transected. The anvil for the rolling chair pusher was easily palpated through the vagina. At this point, Dr. Copeland doubly ligated the infundibulopelvic ligament as well as vessels, transected with the LigaSure. Then, the round ligament was doubly cauterized and transected with the LigaSure. The anterior leaf of the broad ligament was also opened, and this was carried down to and traversed across the lower uterine segment. This met the previous dissection. The uterine vessels were carefully identified on the left hand side. These were cauterized and transected with the LigaSure. At this point, the anvil appeared to be free of any vascular structures crossing it. At this point, Dr. Correa utilized the Harmonic scalpel to totally amputate the uterus from the apex of the vagina. This was then brought down through the vagina and then removed. An Asepto bulb was then placed in the vagina to remain the pneumoperitoneum. The apex of the vagina was then closed utilizing 0 V-Loc suture in a running fashion. There was evidence of good closure. There was no evidence of any further bleeding. Both incision sites on the left and right sides were inspected, and no bleeding was noted. The apex of the vagina appeared to be closed and also appeared to be free of any bleeding. The CO2 was allowed to escape from the abdominal cavity. The ports were removed without difficulty. A cystoscopy was performed, and there was evidence of good urine traversing through both ureters. There is no evidence of any stitches or lacerations of the bladder. The subumbilical as well as left and right lower abdominal ports were all closed utilizing 4-0 Monocryl with a Dermabond. Dr Copeland's assistance was vital to the successful completion of the operation. TD: 01/11/2021 11:21 PLOA
[2021-01-11] MEDS ORDERED: LACTATED RINGERS 1,000 ML IV SCH (12:00)
[2021-01-11] MEDS: GABAPENTIN 400 MG CAPSULE PO SCH ×2 (14:23→22:37)
--- NOTE | 2021-01-11 16:00 | ANESTHESIA POST OP EVALUATION ---
Anesthesia Post Eval - Post Anesthesia Eval Vitals: Last Vital Signs Temp 36.8 C 01/11/21 13:14 Pulse 114 H 01/11/21 13:14 Resp 18 01/11/21 13:14 BP 125/71 01/11/21 13:14 Pulse Ox 95 01/11/21 13:14 CV Function Including HR & BP: positive: Stable Pain Control: positive: Satisfactory Nausea & Vomiting: positive: Negative Mental Status: positive: Baseline Respiratory Status: Airway Patent Hydration Status: Satisfactory Anesthesia Complications: positive: None
[2021-01-11] MEDS: DOCUSATE SODIUM 250 MG CAPSULE PO SCH (19:31)
[2021-01-11] MEDS: SENNA 8.6 MG TABLET PO SCH (19:31)
[2021-01-12] MEDS: GABAPENTIN 400 MG CAPSULE PO SCH (05:01)
[2021-01-12 08:10] VITALS: BP 110/76
--- NOTE | 2021-01-12 08:20 | PROVIDER PROGRESS NOTE ---
Subjective - General Procedure Date: 01/11/21 Post Op Days: 1 Procedure Performed: TLH WITH RACHEL AND CYSTO - Review of Systems Wound/Incisions: positive: Healing well General: positive: No symptoms (Pain 6/10. Pt notes good pain control. pain is less than her period cramps.) Gastrointestinal: negative: Flatus Objective - Patient Data Reviewed Vital Signs: Yes Vital Signs: Vital Signs x48h Temp Pulse Resp BP Pulse Ox 01/12/21 08:09 36.6 C 71 19 110/76 96 01/12/21 04:55 36.5 C 84 16 110/66 100 Weight: Weight 01/10/21 01/11/21 01/12/21 23:59 23:59 23:59 Weight (kg) 80.7 kg Intake & Output: Intake and Output Totals x24h 01/10/21 01/11/21 01/12/21 23:59 23:59 23:59 Intake Total 200 500 Output Total 900 1300 Balance -700 -800 - Lab Results Other Lab Results: Lab Results x24hrs 01/11/21 01/11/21 Range/Units 08:15 07:50 FSH 7.75 mIU/mL Blood Type A POSITIVE Antibody Screen NEGATIVE - Current Medications Current Medications: Current Medications Generic Name Dose Route Start Last Admin Trade Name Freq PRN Reason Stop Dose Admin Docusate Sodium 250 - 500 mg 01/11/21 19:00 01/11/21 19:31 Docusate Sodium 250 Mg Capsule PO 250 mg DAILY AMELIA Administration Gabapentin 400 mg 01/11/21 14:00 01/12/21 05:01 Gabapentin 400 Mg Capsule PO 400 mg TID AMELIA Administration Acetaminophen 100 mls @ 400 mls/hr 01/11/21 11:04 01/12/21 01:18 Ofirmev IV Infused Q6HR PRN Infusion PAIN Ketorolac Tromethamine 30 mg 01/11/21 11:05 01/11/21 19:32 Ketorolac 30 Mg/Ml Vial IVP 01/16/21 11:04 30 mg Q6HR PRN Administration PAIN Senna 8.6 - 17.2 mg 01/11/21 19:00 01/11/21 19:31 Senna 8.6 Mg Tablet PO 8.6 mg DAILY AMELIA Administration - Physical Exam Wound/Incisions: positive: Dressing dry and intact General Appearance: positive: No acute distress, Alert Extremities: negative: Calf tenderness, Grant's sign/cords Neurologic/Psychiatric: positive: Oriented x3 Impression/Plan - Problem List Problem List: good progress Discharge medications Tramadol 50 mg #20 valtrex 2 gms bid #2. RTC 01/19/21 13:00
[2021-01-12] MEDS ORDERED: polyethylene glycoL 3350 17 GM PACKET PO SCH (09:00)
[2021-01-12] MEDS: SENNA 8.6 MG TABLET PO SCH (09:01)
[2021-01-12] MEDS: DOCUSATE SODIUM 250 MG CAPSULE PO SCH (09:01)
[2021-01-12] MEDS ORDERED: valACYclovir 500 MG TABLET PO SCH (10:00)
== END 2021-01-12 09:20 | disposition home or self-care (01) ==
LOC: SDS 06:30 → MS2 11:55 → SDS 01-12 09:20
PROVIDERS: ATTEND Obstetrics & Gynecology
PROC: 0UT94ZZ Resection of Uterus, Percutaneous Endoscopic Approach (ICD-10-PCS; principal; 2021-01-11 07:30)
PROC: 0UB24ZZ Excision of Bilateral Ovaries, Percutaneous Endoscopic Approach (ICD-10-PCS; 2021-01-11 07:30)
DX: N80.0 Endometriosis of uterus (principal); D25.1 Intramural leiomyoma of uterus; E20.9 Hypoparathyroidism, unspecified; Z87.59 Personal history of other complications of pregnancy, childbirth and the puerperium; Z87.891 Personal history of nicotine dependence; Z90.79 Acquired absence of other genital organ(s)
CPT/HCPCS: 58571; 81025; 82670; 83001; 86850; 86900; 86901; A9270; J0131; J0690; J1200; J7120

== ENCOUNTER 2021-07-21 13:55 | Emergency (ER) | payer OTHER ==
[2021-07-21 14:03] VITALS: BP 130/98
--- NOTE | 2021-07-21 14:27 | ED Physician Documentation ---
History of Present Illness - Stated complaint Stated Complaint: LEFT FINGER LAC - Chief complaint Chief Complaint: Laceration - Additonal information Additional information: [id number] female presents emergency department for evaluation of a partial fingertip amputation distal tip left finger sustained when using a vegetable slicer at work. Tetanus is up-to-date. 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 : Kidney stones HEENT: None Psych: Post traumatic stress disorder Musculoskeletal: Other Derm: None - Past Surgical History Past Surgical History: Yes General: Colonoscopy, EGD Ortho: Knee replacement, ACL reconstruction, Shoulder arthroplasty, Spine surgery /GRIT BLASTER: Endometrial ablation, Tubal ligation, Other Neuro: Other HEENT: Other - Present Medications Home Medications: Ambulatory Orders Medication Instructions Recorded Confirmed Ipratropium/Albuterol [Combivent 1 puffs PO Q6HR 06/20/17 01/11/21 Respimat] Meloxicam [Mobic] 7.5 mg PO PRN PRN 06/20/17 01/11/21 diazePAM [Valium] 5 mg PO TID PRN #15 tablet 01/28/19 01/03/21 Krill Oil/Hyaluronic/Astaxanth 1 cap PO DAILY 01/03/21 01/11/21 [Move Free Ultra [place] Jnt Plus] Omeprazole 20 mg PO DAILY 01/03/21 01/11/21 Psyllium [Metamucil] 1 each PO DAILY 01/03/21 01/11/21 polyethylene glycoL 3350 [Miralax] 17 gm PO DAILY 01/03/21 01/11/21 Joint Ease 01/11/21 - Allergies Allergies/Adverse Reactions: Allergies Allergy/AdvReac Type Severity Reaction Status Date / Time avocado Allergy Anaphylaxis Verified 07/21/21 14:01 cyclobenzaprine HCl * Allergy Anaphylaxis Verified 07/21/21 14:01 [From Flexeril] Influenza Virus Vaccines Allergy Anaphylaxis Verified 07/21/21 14:01 iodine Allergy Rash Verified 07/21/21 14:01 meperidine [From Demerol] Allergy Hives Verified 07/21/21 14:01 metronidazole Allergy Anaphylaxis Verified 07/21/21 14:01 Opioids - Morphine Analogues AdvReac Nausea Verified 07/21/21 14:01 - Social History Does the pt smoke?: No Smoking Status: Never smoker Does the pt drink ETOH?: No Does the pt have substance abuse?: No PD ED PE EXPANDED - General General: Alert, No acute distress - Extremities Extremities: Left finger(s) (0.5 cm distal tip partial amputation of the fat pad index finger. Bleeding is controlled with pressure.) Results - Vitals Vitals: Vital Signs - 24 hr 07/21/21 14:01 Temperature 36.5 C Heart Rate 90 Respiratory 16 Rate Blood Pressure 130/98 H O2 Saturation 96 Oxygen O2 Source Room air Procedures - General procedure General procedure: Fat pad tip amputation cleansed with chlorhexidine and saline. Surgicel placed over laceration for clot and bleeding control. Dressed with gauze and netting. PD MEDICAL DECISION MAKING - ED course Complexity details: d/w patient ED course: Partial left index finger tip fat pad amputation when using a vegetable slicer at work. Bleeding was controlled with pressure. Surgicel placed over the wound. This wound is not amenable to primary closure with sutures. Routine wound care and emergent return precautions discussed. Patient's tetanus is up-to-date. L&I paperwork completed claim #[id number] Departure - Departure Disposition: 01 Home, Self Care Clinical Impression: Laceration of index finger Qualifiers: Encounter type: initial encounter Damage to nail status: without damage Foreign body presence: without foreign body Laterality: left Qualified Code(s): S61.211A - Laceration without foreign body of left index finger without damage to nail, initial encounter Condition: Stable Record reviewed to determine appropriate education?: Yes Comments: Gloria I wish you luck as this heals. Unfortunately there is nothing that we can do to formally close this. This accident basically is a deep abrasion and will take about 2 weeks to heal. We placed a bandage on the laceration called Surgicel. It will help form a clot. You simply let this fall away over the next week. You are cleared to return to work but must wear a glove or finger cot. If at any point you have concerns of infection, finger redness, swelling milky drainage or red streaking then please return immediately to the ER for a second evaluation
== END 2021-07-21 15:39 | disposition home or self-care (01) ==
LOC: ED 13:55
DX: S61.211A Laceration without foreign body of left index finger without damage to nail, initial encounter (principal); W26.0XXA Contact with knife, initial encounter; Y99.0 Civilian activity done for income or pay
CPT/HCPCS: 1040M; 99282

== ENCOUNTER 2022-06-08 13:46 | Outpatient (CLI) | payer OTHER ==
--- NOTE | 2022-06-11 10:21 | Mammography Report ---
BILATERAL DIGITAL SCREENING MAMMOGRAM 3D/2D: 06/08/2022 CLINICAL: Routine screening. Comparison is made to exams dated: 08/08/2017 mammogram - [facility] and 10/01/2012 mammogram - [facility]. There are scattered fibroglandular elements in both breasts. There is an irregular high density focal asymmetry with a spiculated margin in the left breast centra l to the nipple middle depth. There is architectural distortion associated with the focal asymmetry. No other significant masses, calcifications, or other findings are seen in either breast. IMPRESSION: INCOMPLETE: NEEDS ADDITIONAL IMAGING EVALUATION The irregular high density focal asymmetry in the left breast is indeterminate. A diagnostic mammogr am and ultrasound is recommended. Based on the Tyrer Cuzick model (a risk assessment model) the patients lifetime risk is 6.2% and her 10 year risk is 1.4%. According to the ACR, ACS, and NCCN guidelines, an annual breast MRI exam giovani g with mammogram is recommended if the patients lifetime risk is 20% or greater. This exam was interpreted at Station ID: [id number]. NOTE: For mammograms, a report in lay terms will be sent to the patient. Approximately 15% of breast malignancies will not be visualized mammographically. In the management of a palpable breast mass, a negative mammogram must not discourage biopsy of a clinically suspicious lesion. Electronically Signed By: Maria Elena lafleur/anjum:06/08/2022 17:10:47 ACR BI-RADS Category 0: Incomplete 3340F PARENCHYMAL PATTERN: (A) - The breast(s) demonstrate(s) scattered fibroglandular densities. BI-RADS CATEGORY: (0) - 0 Mammo and [place] [id number] Immediate follow-up LATERALITY: (B)
== END 2022-06-08 13:47 | disposition home or self-care (01) ==
LOC: DI 13:46
DX: Z12.31 Encounter for screening mammogram for malignant neoplasm of breast (principal); R92.8 Other abnormal and inconclusive findings on diagnostic imaging of breast

== ENCOUNTER 2022-08-07 17:04 | Emergency (ER) | payer OTHER ==
[2022-08-07] MEDS ORDERED: SODIUM CHLORIDE 0.9% 1,000 ML IV STA (17:38)
[2022-08-07] MEDS ORDERED: PANTOPRAZOLE 40 MG VIAL IVP STA (17:38)
[2022-08-07] MEDS ORDERED: LIDOCAINE VISCOUS 2% 15 ML UDC MM STA (17:38)
[2022-08-07] MEDS ORDERED: SUCRALFATE 1 GM/10 ML UDC PO STA (17:38)
[2022-08-07] MEDS ORDERED: MAG HYDROX/AL HYDROX/SIMETH 30 ML UDC PO STA (17:38)
--- NOTE | 2022-08-07 17:56 | ED Physician Documentation ---
PD HPI ABD PAIN - Stated complaint Stated Complaint: UPPER ABD PX/LIGHTHEAD - Chief complaint Chief Complaint: Allergic Rx - History obtained from History obtained from: Patient - History of Present Illness Timing - details: Gradual onset Pain level max: 5 Pain level now: 5 Associated symptoms: Vomiting, Diarrhea. No: Fever, Nausea, Hematemesis Recently seen: Not recently seen - Additional information Additional information: Patient is a 52-year-old female who presents to the emergency department complaint of abdominal pain. She states that ever since starting high dose of vitamin D3 she has had epigastric abdominal pain. She states that she had 2-3 episodes of dark tarry stools. She states now she has diarrhea several times per day. She talk to her whitewater rafting guide who recommends stopping the high-dose vitamin D3. They recommended that she come here for evaluation. She has had 1 episode of vomiting. She states that the diarrhea is now normal in color. Nonbloody. 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: Ectopic : Kidney stones HEENT: None Psych: Post traumatic stress disorder Musculoskeletal: Other Derm: None Other Past Medical History: Breast cancer - Past Surgical History Past Surgical History: Yes General: Colonoscopy, EGD Ortho: Knee replacement, ACL reconstruction, Shoulder arthroplasty, Spine surgery /BOW STAPLER: Endometrial ablation, Tubal ligation, Other Neuro: Other HEENT: Other - Present Medications Home Medications: Ambulatory Orders Medication Instructions Recorded Confirmed Ipratropium/Albuterol [Combivent 1 puffs PO Q6HR 06/20/17 08/07/22 Respimat] Meloxicam [Mobic] 7.5 mg PO PRN PRN 06/20/17 08/07/22 diazePAM [Valium] 5 mg PO TID PRN #15 tablet 01/28/19 08/07/22 Acetaminophen [Tylenol] 500 mg PO DAILY PRN 08/07/22 08/07/22 Diclofenac Sodium [Voltaren 1 applic TP DAILY 08/07/22 08/07/22 Arthritis Pain] Ergocalciferol [Vitamin D2] 50,000 unit ORAL ONCE 08/07/22 08/07/22 Esomeprazole Magnesium [Nexium] 40 mg PO DAILY #30 cap 08/07/22 Famotidine [Pepcid] 20 mg PO DAILY 08/07/22 08/07/22 Fluticasone [Flonase] 1 sprays BETSY DAILY 08/07/22 08/07/22 Ibuprofen 200 mg PO DAILY PRN 08/07/22 08/07/22 Sucralfate [Carafate] 1 gm PO ACHS #60 tablet 08/07/22 - Allergies Allergies/Adverse Reactions: Allergies Allergy/AdvReac Type Severity Reaction Status Date / Time avocado Allergy Anaphylaxis Verified 08/07/22 17:10 cyclobenzaprine HCl * Allergy Anaphylaxis Verified 08/07/22 17:10 [From Flexeril] Influenza Virus Vaccines Allergy Anaphylaxis Verified 08/07/22 17:10 iodine Allergy Rash Verified 08/07/22 17:10 meperidine [From Demerol] Allergy Hives Verified 08/07/22 17:10 metronidazole Allergy Anaphylaxis Verified 08/07/22 17:10 Opioids - Morphine Analogues AdvReac Nausea Verified 08/07/22 17:10 - Social History Does the pt smoke?: No Smoking Status: Never smoker Does the pt drink ETOH?: No Does the pt have substance abuse?: No PD ED PE NORMAL - Vitals Vital signs reviewed: Yes - General General: Alert and oriented X 3, No acute distress, Well developed/nourished - HEENT HEENT: PERRL, Moist mucous membranes - Neck Neck: Supple, no meningeal sign - Cardiac Cardiac: RRR - Respiratory Respiratory: Clear bilaterally - Abdomen Abdomen: Normal bowel sounds, Soft, Non distended, Other (Mild tenderness to palpation epigastric. No peritoneal signs. Negative Rothman sign.) - Back Back: No CVA TTP, No spinal TTP - Derm Derm: Warm and dry - Extremities Extremities: No edema - Neuro Neuro: Alert and oriented X 3 - Psych Psych: Normal mood, Normal affect Results - Vitals Vitals: Vital Signs - 24 hr 08/07/22 08/07/22 08/07/22 17:10 17:16 19:16 Temperature 36.9 C 36.9 C 36.5 C Heart Rate 76 76 72 Respiratory 16 16 16 Rate Blood Pressure 136/71 H 136/71 H 128/72 O2 Saturation 98 98 98 Oxygen O2 Source Room air - Labs Labs: Laboratory Tests 08/07/22 08/07/22 08/07/22 17:50 17:50 17:50 WBC 4.2 L RBC 4.82 Hgb 14.6 Hct 44.0 MCV 91.3 MCH 30.3 MCHC 33.2 RDW 12.4 Plt Count 230 MPV 9.4 Neut # (Auto) 1.5 Lymph # (Auto) 1.8 [place] # (Auto) 0.8 Eos # (Auto) 0.1 Baso # (Auto) 0.0 Absolute Nucleated RBC 0.00 Nucleated RBC % 0.0 Sodium Potassium Chloride Carbon Dioxide Anion Gap BUN Creatinine Estimated GFR (MDRD) Glucose Calcium Total Bilirubin AST ALT Alkaline Phosphatase Total Protein Albumin Globulin Albumin/Globulin Ratio Lipase Urine Color YELLOW Urine Clarity CLEAR Urine pH 5.5 Ur Specific [place] >=1.030 H Urine Protein NEGATIVE Urine Glucose (UA) NEGATIVE Urine Ketones NEGATIVE Urine Occult Blood TRACE-INTA Urine Nitrite NEGATIVE Urine Bilirubin NEGATIVE Urine Urobilinogen 0.2 (NORMAL) Ur Leukocyte Esterase NEGATIVE Ur Microscopic Review NOT INDICATED Urine Culture Comments NOT INDICATED Urine HCG, Qual NEGATIVE Nasal Adenovirus (PCR) NOT DETECTED Nasal B. parapertussis DNA (PCR) NOT DETECTED Nasal Coronavir 229E PCR NOT DETECTED Nasal Coronavir HKU1 PCR NOT DETECTED Nasal Coronavir NL63 PCR NOT DETECTED Nasal Coronavir OC43 PCR NOT DETECTED Nasal Enterovir/Rhinovir PCR NOT DETECTED Nasal Influenza B PCR NOT DETECTED Nasal Influenza A PCR NOT DETECTED Nasal Parainfluen 1 PCR NOT DETECTED Nasal Parainfluen 2 PCR NOT DETECTED Nasal Parainfluen 3 PCR NOT DETECTED Nasal Parainfluen 4 PCR NOT DETECTED Nasal RSV (PCR) NOT DETECTED Nasal B.pertussis DNA PCR NOT DETECTED Nasal C.pneumoniae (PCR) NOT DETECTED [place]y Human Metapneumo PCR NOT DETECTED Nasal M.pneumoniae (PCR) NOT DETECTED Nasal SARS-CoV-2 (PCR) NOT DETECTED 08/07/22 18:36 WBC RBC Hgb Hct MCV MCH MCHC RDW Plt Count MPV Neut # (Auto) Lymph # (Auto) [place] # (Auto) Eos # (Auto) Baso # (Auto) Absolute Nucleated RBC Nucleated RBC % Sodium 136 Potassium 3.6 Chloride 103 Carbon Dioxide 26 Anion Gap 7.0 BUN 15 Creatinine 0.6 Estimated GFR (MDRD) 106 Glucose 86 Calcium 9.4 Total Bilirubin 0.6 AST 21 ALT 27 Alkaline Phosphatase 50 Total Protein 6.8 Albumin 4.0 Globulin 2.8 Albumin/Globulin Ratio 1.4 Lipase 34 Urine Color Urine Clarity Urine pH Ur Specific [place] Urine Protein Urine Glucose (UA) Urine Ketones Urine Occult Blood Urine Nitrite Urine Bilirubin Urine Urobilinogen Ur Leukocyte Esterase Ur Microscopic Review Urine Culture Comments Urine HCG, Qual Nasal Adenovirus (PCR) Nasal B. parapertussis DNA (PCR) Nasal Coronavir 229E PCR Nasal Coronavir HKU1 PCR Nasal Coronavir NL63 PCR Nasal Coronavir OC43 PCR Nasal Enterovir/Rhinovir PCR Nasal Influenza B PCR Nasal Influenza A PCR Nasal Parainfluen 1 PCR Nasal Parainfluen 2 PCR Nasal Parainfluen 3 PCR Nasal Parainfluen 4 PCR Nasal RSV (PCR) Nasal B.pertussis DNA PCR Nasal C.pneumoniae (PCR) [place] Human Metapneumo PCR Nasal M.pneumoniae (PCR) Nasal SARS-CoV-2 (PCR) PD MEDICAL DECISION MAKING - ED course Complexity details: reviewed results, re-evaluated patient, considered differential, d/w patient ED course: 52-year-old female with what sounds like GI upset following high-dose vitamin D therapy. She has now stopped this. Her epigastric pain improved with a GI cocktail. We will place her on a PPI and Carafate for home. Patient is very well-appearing, nontoxic. Afebrile. Tolerating p.o. without difficulty. Abdomen is soft, nontender nondistended on serial exam. She declines any pain medication here or for home. No significant lab abnormalities including a normal calcium level. Patient counseled regarding signs and symptoms for which I believe and urgent re-evaluation would be necessary. Patient with good understanding of and agreement to plan and is comfortable going home at this time This document was made in part using voice recognition software. While efforts are made to proofread this document, sound alike and grammatical errors may occur. Departure - Departure Disposition: 01 Home, Self Care Clinical Impression: Abdominal pain Qualifiers: Abdominal location: epigastric Qualified Code(s): R10.13 - Epigastric pain Condition: Good Instructions: ED Abdominal Pain Female Non-Specific Abdominal Pain, ED PUD Vs Gastritis Follow-Up: ROBERTA SALVADOR, [Physician No Access] - BEN LARRY PA-C [Primary Care Provider] - Within 1 week Prescriptions: Sucralfate [Carafate] 1 gm PO ACHS #60 tablet Esomeprazole Magnesium [Nexium] 40 mg PO DAILY #30 cap Comments: Your prescriptions were sent to [facility] in [place]. Please follow-up with your doctor for further care. It appears that this was likely a reaction to the high-dose vitamin D. Please continue to hold this medication. Your laboratory testing does not show any acute abnormalities today. Your symptoms should improve over the next 2 to 3 days. Discharge Date/Time: 08/07/22 19:44
[2022-08-07 18:03] LABS: BILIRUBIN,URINE NEGATIVE (NEGATIVE); GLUCOSE, URINE (UA) NEGATIVE (NEGATIVE); KETONES,URINE (UA) NEGATIVE (NEGATIVE); LEUKOCYTE ESTERASE, URINE NEGATIVE (NEGATIVE); NITRITE,URINE NEGATIVE (NEGATIVE); OCCULT BLOOD,URINE TRACE-INTA (NEGATIVE); PH,URINE 5.5 PH (5.0-7.5); PROTEIN,URINE NEGATIVE (NEGATIVE); UROBILINOGEN,URINE 0.2 (NORMAL) E.U./dL (NORMAL)
[2022-08-07 18:04] LABS: CLARITY,URINE CLEAR (CLEAR)
[2022-08-07] MEDS ORDERED: DICYCLOMINE 10 MG CAPSULE PO STA (18:04)
[2022-08-07 18:05] LABS: HCG UR QUAL NEGATIVE
[2022-08-07 18:06] LABS: BASOPHILS % (AUTO) 0.7 %; EOSINOPHILS # (AUTO) 0.1 10^3/uL (0.0-0.7); EOSINOPHILS % (AUTO) 2.4 %; HGB - HEMOGLOBIN 14.6 g/dL (12.0-16.0); LYMPHOCYTES # (AUTO) 1.8 10^3/uL (1.5-3.5); LYMPHOCYTES % (AUTO) 42.2 %; MEAN CORPUSCULAR HEMOGLOBIN 30.3 pg (27.0-31.0); MEAN CORPUSCULAR HGB CONC 33.2 g/dL (32.0-36.0); MEAN CORPUSCULAR VOLUME 91.3 fL (81.0-99.0); MEAN PLATELET VOLUME 9.4 fL (7.9-10.8); MONOCYTES # (AUTO) 0.8 10^3/uL (0.0-1.0); MONOCYTES % (AUTO) 19.1 %; NEUTROPHILS # (AUTO) 1.5 10^3/uL (1.5-6.6); NEUTROPHILS % (AUTO) 35.4 %; PLT - PLATELET COUNT 230 10^3/uL (130-450); RED BLOOD COUNT 4.82 10^6/uL (4.20-5.40); RED CELL DISTRIBUTION WIDTH 12.4 % (12.0-15.0); WHITE BLOOD COUNT 4.2 x10^3/uL (4.8-10.8)
[2022-08-07 18:52] LABS: ALBUMIN/GLOBULIN RATIO 1.4 (1.0-2.2); BILIRUBIN,TOTAL 0.6 mg/dL (0.2-1.0); CALCIUM 9.4 mg/dL (8.5-10.3); CREATININE 0.6 mg/dL (0.4-1.0); POTASSIUM 3.6 mmol/L (3.5-5.0); TOTAL PROTEIN 6.8 g/dL (6.7-8.2)
[2022-08-07 18:55] LABS: B. PARAPERTUSSIS- RESP PCR PAN NOT DETECTED; B. PERTUSSIS- RESP PCR PANEL NOT DETECTED; C. PNEUMONIAE- RESP PCR PANEL NOT DETECTED; CORONAVIRUS 229E-RESP PCR NOT DETECTED; CORONAVIRUS HKU1-RESP PCR NOT DETECTED; CORONAVIRUS NL63-RESP PCR NOT DETECTED; CORONAVIRUS OC43-RESP PCR NOT DETECTED; HUMAN METAPNEUMOVIRUS NOT DETECTED; INFLUENZA A- RESP PCR PANEL NOT DETECTED; INFLUENZA B - RESP PCR PANEL NOT DETECTED; M. PNEUMONIAE- RESP PCR PANEL NOT DETECTED; PARAINFLUENZA VIRUS 1 NOT DETECTED; PARAINFLUENZA VIRUS 2 NOT DETECTED; PARAINFLUENZA VIRUS 3 NOT DETECTED; PARAINFLUENZA VIRUS 4 NOT DETECTED; RHINOVIRUS/ENTEROVIRUS NOT DETECTED; RSV- RESP PCR PANEL NOT DETECTED; SARS-CoV-2 -RESP PCR PANEL NOT DETECTED
[2022-08-07 19:44] VITALS: BP 128/72
== END 2022-08-07 19:44 | disposition home or self-care (01) ==
LOC: ED 17:04
DX: R10.13 Epigastric pain (principal); Z20.822 Contact with and (suspected) exposure to COVID-19
CPT/HCPCS: 36415; 80053; 81003; 81025; 83690; 85025; 87633; 96374; 99283; A9270; 81001; 87086

== ENCOUNTER 2022-08-15 16:47 | Outpatient (CLI) | payer OTHER | END 2022-08-15 16:48 | disposition home or self-care (01) | LOC: LAB 16:47 | PROVIDERS: ATTEND Student in an Organized Health Care Education/Training Program | DX: E21.0 Primary hyperparathyroidism (principal) | CPT/HCPCS: 36415; 82306; 83970 ==

== ENCOUNTER 2022-09-10 12:56 | Emergency (ER) | payer OTHER ==
[2022-09-10 13:10] VITALS: BP 137/87
--- NOTE | 2022-09-10 13:32 | ED Physician Documentation ---
History of Present Illness - Stated complaint Stated Complaint: SWOLLEN BREAST - Chief complaint Chief Complaint: General - Additonal information Additional information: 52-year-old female presents to the emergency department for evaluation of concerns of fluid collection or abscess formation after recent lumpectomy on her left breast. She underwent surgery at [facility] on 31 August. She reports that 2 days postoperative she began having increasing pain so the clinic put her on cephalexin. She is on day 4 of 10. She reports that she has had no redness but the swelling in the breast has worsened as well as the pain. She takes Tylenol without relief. Has occasionally tried tramadol again without relief. She does report subjective fevers. She is anxious, frustrated and upset. She reports she called the surgery office and was told to come to the emergency department to have her breast drained. Review of Systems Constitutional: reports: Fever. denies: Chills Ears: reports: Reviewed and negative Throat: reports: Reviewed and negative Cardiac: reports: Reviewed and negative Skin: reports: Other (Surgical incisions) PD PAST MEDICAL HISTORY - Past Medical History Cardiovascular: None Respiratory: None Endocrine/Autoimmune: None GI: None DIABETES CLINICAL MANAGER: Ectopic : Kidney stones HEENT: None Psych: Post traumatic stress disorder Musculoskeletal: Other Derm: None - Past Surgical History Past Surgical History: Yes General: Colonoscopy, EGD Ortho: Knee replacement, ACL reconstruction, Shoulder arthroplasty, Spine surgery /DIABETES CLINICAL MANAGER: Endometrial ablation, Tubal ligation, Other Neuro: Other HEENT: Other - Present Medications Home Medications: Ambulatory Orders Medication Instructions Recorded Confirmed Ipratropium/Albuterol [Combivent 1 puffs PO Q6HR 06/20/17 08/07/22 Respimat] Meloxicam [Mobic] 7.5 mg PO PRN PRN 06/20/17 08/07/22 diazePAM [Valium] 5 mg PO TID PRN #15 tablet 01/28/19 08/07/22 Acetaminophen [Tylenol] 500 mg PO DAILY PRN 08/07/22 08/07/22 Diclofenac Sodium [Voltaren 1 applic TP DAILY 08/07/22 08/07/22 Arthritis Pain] Ergocalciferol [Vitamin D2] 50,000 unit ORAL ONCE 08/07/22 08/07/22 Esomeprazole Magnesium [Nexium] 40 mg PO DAILY #30 cap 08/07/22 Famotidine [Pepcid] 20 mg PO DAILY 08/07/22 08/07/22 Fluticasone [Flonase] 1 sprays BETSY DAILY 08/07/22 08/07/22 Ibuprofen 200 mg PO DAILY PRN 08/07/22 08/07/22 Sucralfate [Carafate] 1 gm PO ACHS #60 tablet 08/07/22 - Allergies Allergies/Adverse Reactions: Allergies Allergy/AdvReac Type Severity Reaction Status Date / Time adhesive tape Allergy Rash Verified 09/10/22 13:11 avocado Allergy Anaphylaxis Verified 09/10/22 13:11 cyclobenzaprine HCl * Allergy Anaphylaxis Verified 09/10/22 13:11 [From Flexeril] Influenza Virus Vaccines Allergy Anaphylaxis Verified 09/10/22 13:11 iodine Allergy Rash Verified 09/10/22 13:11 meperidine [From Demerol] Allergy Hives Verified 09/10/22 13:11 metronidazole Allergy Anaphylaxis Verified 09/10/22 13:11 Opioids - Morphine Analogues AdvReac Nausea Verified 09/10/22 13:11 - Social History Does the pt smoke?: No Smoking Status: Never smoker Does the pt drink ETOH?: No Does the pt have substance abuse?: No PD ED PE EXPANDED - General General: Alert, No acute distress - Derm Derm: Other (surgical incision left upper breast and suprior to the areola intact, no redness or drainage. Left breast itself is mildly swollen but not more than expected. Mildly tender but not more than expected.) - Extremities Extremities: Normal. No: Deformity - Neuro Neuro: Alert and Oriented X 3, CNII-XII intact Results - Vitals Vitals: Vital Signs - 24 hr 09/10/22 13:06 Temperature 37 C Heart Rate 71 Respiratory 16 Rate Blood Pressure 137/87 H O2 Saturation 98 Oxygen O2 Source Room air - Labs Labs: Laboratory Tests 09/10/22 09/10/22 13:39 13:39 WBC 6.9 RBC 4.82 Hgb 14.6 Hct 44.6 MCV 92.5 MCH 30.3 MCHC 32.7 RDW 12.4 Plt Count 262 MPV 9.4 Neut # (Auto) 3.5 Lymph # (Auto) 2.3 Platte # (Auto) 0.6 Eos # (Auto) 0.4 Baso # (Auto) 0.1 Absolute Nucleated RBC 0.00 Nucleated RBC % 0.0 Sodium 139 Potassium 4.1 Chloride 108 Carbon Dioxide 23 Anion Gap 8.0 BUN 20 Creatinine 0.6 Estimated GFR (MDRD) 106 Glucose 90 Calcium 10.0 - Rads (name of study) limited left breast ultrasound Radiology: Other (Per medicine technologist large fluid collection between 12 and 3:00 in the left breast. Abscess versus seroma.) PD MEDICAL DECISION MAKING - ED course Complexity details: reviewed results, re-evaluated patient, considered differential, d/w patient, d/w test consultant (Dr. Pereira) ED course: 52-year-old female presents emergency department for evaluation of worsening left breast pain. She is status postlumpectomy on the at [facility] with Dr. Pereira. 2 days postop she was concerned that there was some erythema around her upper incision and she was started on Keflex. She has been binding the breast as advised. She reports that over the last few days she has had increase in swelling of the breast but no erythema. No drainage from the incision sites. No fevers. She called her surgeon's office and they advised her to come to the ER for evaluation. On my exam the 2 incisions appear to be healing well. There is no surrounding erythema or drainage. They are intact. The left breast itself is mildly swollen though it is not erythematous, hot or more tender to touch than we would expect given the recent lumpectomy. I did obtain a CBC that shows no leukocytosis. Her electrolytes were also unr emarkable. Here in the emergency department her vital signs are normal without fever. I did briefly discussed this case with her surgeon. Though the ultrasound shows a large fluid collection that may be interpreted as abscess by the radiologist given that there is no fever, leukocytosis erythema or significant warmth to the left breast it is unlikely that this is an abscess. Her surgeon would like her to follow-up in his office later this week. At that time they would consider whether ultrasound guided drainage of this fluid collection would be Advised at that time. I discussed the labs ultrasound imaging findings as well as my discussion with the surgeon with the patient. She is upset and frustrated. She would like the fluid collection drained today. However I did discuss that with the otherwise reassuring exam labs and vitals it would be felt more risk than benefit to do a drainage today. I am advising her to continue to complete the course of antibiotics prescribed by the surgeon. Otherwise emergent return precautions discussed Departure - Departure Disposition: 01 Home, Self Care Clinical Impression: Status post left breast lumpectomy Fluid collection at surgical site Qualifiers: Encounter type: initial encounter Qualified Code(s): T88.8XXA - Other specified complications of surgical and medical care, not elsewhere classified, initial encounter Condition: Stable Record reviewed to determine appropriate education?: Yes Comments: Gloria you are seen today in the emergency department because you have had some increasing pain and swelling on your left breast after the lumpectomy on the at [place]. Today in the emergency department your CBC is entirely unremarkable. Your white blood cell count is 6.9 which is normal. Your electrolytes were also normal. We did do an ultrasound that does show a fluid collection between 12:00 and 3:00 in the left breast. This is near the site where the lumpectomy was performed. We typically expect to see fluid collections after a surgery such as yours. Most often they are allowed to resolve on their own. I have discussed this case with your surgeon. He would like you to call the office to arrange for follow-up later this week. He would like you to complete the course of antibiotics that he started 4 days ago. During that office visit they can discuss whether the fluid collection is something that would benefit from drainage.
[2022-09-10] MEDS ORDERED: traMADol 50 MG TABLET PO STA (13:33)
[2022-09-10 13:44] LABS: BASOPHILS # (AUTO) 0.1 10^3/uL (0.0-0.1); EOSINOPHILS # (AUTO) 0.4 10^3/uL (0.0-0.7); EOSINOPHILS % (AUTO) 5.5 %; HCT - HEMATOCRIT 44.6 % (37.0-47.0); HGB - HEMOGLOBIN 14.6 g/dL (12.0-16.0); LYMPHOCYTES # (AUTO) 2.3 10^3/uL (1.5-3.5); LYMPHOCYTES % (AUTO) 33.6 %; MEAN CORPUSCULAR HEMOGLOBIN 30.3 pg (27.0-31.0); MEAN CORPUSCULAR HGB CONC 32.7 g/dL (32.0-36.0); MEAN CORPUSCULAR VOLUME 92.5 fL (81.0-99.0); MEAN PLATELET VOLUME 9.4 fL (7.9-10.8); MONOCYTES # (AUTO) 0.6 10^3/uL (0.0-1.0); MONOCYTES % (AUTO) 8.8 %; NEUTROPHILS # (AUTO) 3.5 10^3/uL (1.5-6.6); NEUTROPHILS % (AUTO) 50.8 %; PLT - PLATELET COUNT 262 10^3/uL (130-450); RED BLOOD COUNT 4.82 10^6/uL (4.20-5.40); RED CELL DISTRIBUTION WIDTH 12.4 % (12.0-15.0); WHITE BLOOD COUNT 6.9 x10^3/uL (4.8-10.8)
--- OUTSIDE RECORDS SUMMARY | 2022-09-10 13:53 | EXTERNAL MEDICAL SUMMARY RPT | Continuity of Care Document ---
:1970 Author Organization [place] Address [address] [place] [address] Phone Care Team Providers Name Role Phone Unavailable Unavailable Unavailable Narewski Can Slider, Glory Unavailable Unavailable Narewski Can Slider, Glory Unavailable Unavailable Narewski Can Slider, Glory Unavailable Unavailable Allergies No information. Encounters No information. Functional Status No information. Immunizations No information. Medications date description facility [id number]+0000 betamethasone dipropionate [facility] [place] [phone]+0000 betamethasone dipropionate [facility] [place] [phone]+0000 betamethasone dipropionate [facility] [place] [phone]+0000 triamcinolone acetonide [facility] [place] [phone]+0000 triamcinolone acetonide [facility] [place] [phone]+0000 triamcinolone acetonide [facility] [place] [phone]+0000 triamcinolone acetonide [facility] [place] [phone]+0000 triamcinolone acetonide [facility] [place] [phone]+0000 triamcinolone acetonide [facility] [place] [phone]+0000 betamethasone dipropionate [facility] [place] [phone]+0000 betamethasone dipropionate [facility] [place] [phone]+0000 betamethasone dipropionate [facility] [place] [phone]+0000 betamethasone dipropionate [facility] [place] [phone]+0000 betamethasone dipropionate [facility] [place] [phone]+0000 betamethasone dipropionate [facility] [place] [phone]+0000 triamcinolone acetonide [facility] [place] [phone]+0000 triamcinolone acetonide [facility] [place] [phone]+0000 triamcinolone acetonide [facility] [place] [phone]+0000 betamethasone dipropionate [facility] [place] [phone]+0000 betamethasone dipropionate [facility] [place] [phone]+0000 betamethasone dipropionate [facility] [place] [phone]+0000 triamcinolone acetonide [facility] [place] [phone]+0000 triamcinolone acetonide [facility] [place] [phone]+0000 triamcinolone acetonide [facility] [place] Problems No information. Procedures date description facility +0000 Visit Code Hold [facility] [place] [phone]+0000 Visit Code [facility] [place] [phone]+0000 Visit Code Hold [facility] [place] Results/Labs No information. Social History No information. Vital Signs date measurement value units +0000 BMI BMI 34.80 kg/m2 [id number]+0000 BP_diastolic BP_diastolic 85 mmHg +0000 BP_systolic BP_systolic 141 mmHg [id number]+0000 heart_rate heart_rate 69 /min [id number]+0000 height_metric height_metric 155.57 cm [id number]+0000 height_standard height_standard 61.25 in +0000 respiration_rate respiration_rate 18 /min +0000 temperature_metric temperature_metric 36.78 C +0000 temperature_standard temperature_standard 9 8.2 F +0000 weight_metric weight_metric 83.91 kg +0000 weight_standard weight_standard 185 lb
[2022-09-10 13:54] LABS: CREATININE 0.6 mg/dL (0.4-1.0); POTASSIUM 4.1 mmol/L (3.5-5.0)
--- NOTE | 2022-09-14 12:25 | Ultrasound Report ---
PROCEDURE: Breast Unilateral Limited INDICATIONS: Left breast fluid collection status post lumpectomy TECHNIQUE: Targeted sonographic evaluation of the breast was performed. COMPARISON: 06/18/2022 left breast ultrasound FINDINGS: In the left breast at the 12:00 position there is a fluid which is greater than the transd ucer field width, measuring at least 8 cm in maximum dimension and at least 3 cm in short axis dimens ion. Adjacent subcutaneous fat is edematous. Overlying skin is mildly thickened. IMPRESSION: Left breast fluid collection likely representing abscess or seroma. ACR BI-RADS: BIRADS 2 (Benign) Reviewed by: Kirby Varma MD on 09/14/2022 12:24 PM PDT Approved by: Kirby Varma MD on 09/14/2022 12:24 PM PDT Station ID: [id number]
== END 2022-09-10 16:00 | disposition home or self-care (01) ==
LOC: ED 12:56
DX: L76.82 Other postprocedural complications of skin and subcutaneous tissue (principal)
CPT/HCPCS: 36415; 76642; 80048; 85025; 99283; 99284; A9270

== ENCOUNTER 2023-02-22 18:09 | Outpatient (CLI) | payer OTHER ==
--- NOTE | 2023-02-22 19:44 | XRAY Report ---
PROCEDURE: Chest 2 View X-Ray INDICATIONS: SUPRACLAVICULAR LYMPHADENOPATHY TECHNIQUE: 2 views of the chest were acquired. COMPARISON: None. FINDINGS: Surgical changes and devices: None. Lungs and pleura: No pleural effusions or pneumothorax. Lungs are clear. Mediastinum: Mediastinal contours appear normal. Heart size is normal. Bones and chest wall: No suspicious bony lesions. Overlying soft tissues appear unremarkable. IMPRESSION: No acute cardiopulmonary abnormality. Reviewed by: Delio Hannah on 02/22/2023 7:42 PM PDT Approved by: Delio Hannah on 02/22/2023 7:42 PM PDT Station ID: [id number]
== END 2023-02-22 18:10 | disposition home or self-care (01) ==
LOC: DI 18:09
PROVIDERS: ATTEND Physician Assistant
DX: R59.0 Localized enlarged lymph nodes (principal)

== ENCOUNTER 2023-02-25 15:01 | Outpatient (CLI) | payer OTHER ==
--- NOTE | 2023-02-25 15:49 | Ultrasound Report ---
PROCEDURE: Head or Neck Soft Tissue INDICATIONS: SUPRACLAVICULAR LYMPHADENOPATHY TECHNIQUE: Real-time scanning was performed of the neck, with image documentation. COMPARISON: None FINDINGS: No adenopathy or sonographic abnormality. Visualized portions of the thyroid are unremarkable. IMPRESSION: No adenopathy or sonographic abnormality. Reviewed by: Irwin Capellan on 02/25/2023 3:47 PM PDT Approved by: Irwin Capellan on 02/25/2023 3:47 PM PDT Station ID: [id number]
== END 2023-02-25 15:02 | disposition home or self-care (01) ==
LOC: DI 15:01
PROVIDERS: ATTEND Physician Assistant
DX: R59.0 Localized enlarged lymph nodes (principal)